=== PATIENT | female | born 2000 | race Caucasian/White ===

== ENCOUNTER 2021-07-17 16:49 | Outpatient (REF) | payer BC, SELFPAY ==
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
== END 2021-07-17 16:50 | disposition home or self-care (01) ==
LOC: HO.XRAY 16:49
PROVIDERS: Absent Provider Internal Medicine; PCP Internal Medicine; Visit Provider Family Medicine
DX: S96.912D Strain of unspecified muscle and tendon at ankle and foot level, left foot, subsequent encounter (principal)
CPT/HCPCS: 73630

== ENCOUNTER 2024-08-10 17:36 | Outpatient (REF) | payer BC, SELFPAY | END 2024-08-10 17:37 | disposition home or self-care (01) | LOC: HO.HHCLNP 17:36 | PROVIDERS: Visit Provider Nurse Practitioner | DX: R09.81 Nasal congestion (principal) | CPT/HCPCS: 87070 ==

== ENCOUNTER 2024-09-21 09:01 | Outpatient (AMB) | payer OTHER, SELFPAY ==
--- NOTE | 2024-09-21 09:03 | A.OFFVIS_ITS ---
Vital Signs 09/21/24 09:10 Height 5 ft 5 in Weight 164 lb BMI 27.3 BP 135/60 Blood Pressure Location Rt brachial Position Sitting Pulse 95 Intake Visit Reasons: soft tissue mass (R) wrist Intake Note: Patient referred by Alayna Duffy NP for mass on dorsal surface of rt wrist. Present for 5m. Patient c/o: bothersome with movement. 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 It is increasing in size, become more symptomatic. She would like to have it removed. She has no such lesions elsewhere. Chart was reviewed and patient evaluate [facility] Medical History (Updated 09/21/24 @ 09:08 by MARGARET Julian) ADHD Surgical History (Updated 09/21/24 @ 09:25 by Micah Williamson MD) [place] teeth extracted Social History (Updated 09/21/24 @ 09:09 by MARGARET Julian) Alcohol intake: current Alcohol intake frequency: holidays/special occasions only Alcohol type: wine and hard liquor Patient Tobacco Use Status: Never used Tobacco Physical Exam Vital Signs: Last Vital Signs Pulse 95 09/21/24 09:10 BP 135/60 09/21/24 09:10 BMI result Body Mass Index 27.3 Chest Other: Chest breath sounds bilaterally, HS 1 in 2 GI Other: Abdomen is soft, benign Extrem Other: Large dorsum right wrist ganglion cyst measuring roughly 3 x 2 cm. Extremities otherwise grossly neurovascularly intact Assessment & Plan Assessment & Plan (1) Ganglion cyst of dorsum of right wrist: Code(s): M67.431 - Ganglion, right wrist Category: Surgical Plan Risks, benefits, alternatives of excision of dorsum right wrist ganglion cyst were reviewed with the patient and included but not limited to bleeding, infection, recurrence, numbness, pain, scarring and the patient wished to proceed. All questions answered. Arrangements were made for this Coding Level of Care Code New Pt Level 5 (30673) Diagnoses Ganglion cyst of dorsum of right wrist M67.431
[2024-09-21 09:10] VITALS: BP 135/60; PULSE 95; BMI 27.3
== END 2024-09-21 09:20 | disposition home or self-care (01) ==
PROVIDERS: PCP Internal Medicine; Visit Provider Surgery
DX: M67.431 Ganglion, right wrist (principal)
CPT/HCPCS: 99204

== ENCOUNTER → 2024-09-21 09:01 | Outpatient (BNVA) | payer BC, SELFPAY | PROVIDERS: PCP Internal Medicine; Visit Provider Surgery ==

== ENCOUNTER 2024-11-13 11:15 | Day surgery (SDC) | payer OTHER, SELFPAY ==
[2024-11-11 13:36] VITALS: BMI 27.3
--- NOTE | 2024-11-12 09:27 | HO.ANESPROP2 ---
Documented by User: Jemima Dawkins NP 11/12/24 09:27 HPI - Anesthesia Eval Consult details Narrative: 24yo F for Right Wide Local Excision Dorsum Wrist Ganglion Cyst PMFSH Active Problems Active Problems: All Active Problems Ganglion cyst of dorsum of right wrist (Acute) Past Medical History Medical History ADHD Surgical History Surgical History [place] teeth extracted Social History Social History Alcohol intake: current Alcohol intake frequency: holidays/special occasions only Alcohol type: wine and hard liquor Patient Tobacco Use Status: Never used Tobacco Advance Directives: No Advance Directives Information Provided: Yes Meds Allergies Allergy/AdvReac Type Severity Reaction Status Date / Time No Known Allergies Allergy Verified 09/21/24 09:07 Home Medications ?Medication ?Instructions ?Recorded ?Confirmed ?Last Taken ?Type dextroamphetamine-amphetamine 30 1 tab PO QAM 09/21/24 11/11/24 Unknown History mg tablet Exam Height,Weight and Vital Signs: Height 5 ft 5 in Weight 74.389 kg Assessment and Plan Assessment Anesthesia Assessment: Chart Reviewed Documented by User: Xiomy Awad MD 11/13/24 11:49 PMFSH Past Medical History Medical History ADHD Surgical History Surgical History [place] teeth extracted History of Problems with Anesthesia: No Social History Social History Alcohol intake: current Alcohol intake frequency: holidays/special occasions only Alcohol type: wine and hard liquor Patient Tobacco Use Status: Never used Tobacco Advance Directives: No Advance Directives Information Provided: Yes Meds Allergies Allergy/AdvReac Type Severity Reaction Status Date / Time No Known Allergies Allergy Verified 09/21/24 09:07 Home Medications ?Medication ?Instructions ?Recorded ?Confirmed ?Last Taken ?Type dextroamphetamine-amphetamine 30 1 tab PO QAM 09/21/24 11/11/24 Unknown History mg tablet Exam Airway Mallampati Class: I TM Dist: >3cm Neck ROM: Full Loose/Missing/Broken Teeth: No Heart: RRR Lungs: CTA Assessment and Plan Assessment Anesthesia Assessment: Anesthesia Plan Discussed Final Anesthetic Review History of Problems with Anesthesia: No NPO: Yes ASA Class: II Final Preanesthetic Review: Meds/Allgs Chart Reviewed, Consent Obtained/Reviewed and Anes Risks/Benef Reviewed Patient Risk: Low Procedure Risk: Low Anesthetic Plan Anesthetic Plan: GA Disposition: Standard PACU
--- NOTE | 2024-11-12 13:40 | MHC.SHP ---
Pre-Procedural Eval Section A - 24 Hr Update-Section A only Date of Service: 11/13/24 The patient is an INPATIENT: No Changes since office visit: No Cold of Flu in the past 2 weeks, No New Medical Problems, No Changes in Medication and No Patient answered all questions Section B - Complete if H&P > 30 days Chief Complaint: Ganglion, right wrist Allergies: Allergies Allergy/AdvReac Type Severity Reaction Status Date / Time No Known Allergies Allergy Verified 09/21/24 09:07 Review of Systems Sugical H&P ROS: Negative: Constitution, Cardiovascular, Respiratory, Neurological, Psychiatric, Hem-Onc, Allergic/Immunologic, Gastrointestinal, Genitourinary, Musculoskeletal, Integumentary, Endocrine and Eyes/Ears/Nose/Throat Exam Surgical H&P Exam: Normal: HEENT, Normal: Heart, Normal: Lungs, Normal: Extremities, Normal: Abdomen, Normal: Skin and Normal: Neurological Plan I have reviewed the history and physical and performed a pertinent physical examination on my patient. No changes have occurred unless specified. Time Spent With Patient Time: Total time managing care of this patient today ____ minutes.
[2024-11-13 11:56] VITALS: BP 111/72; PULSE 80; RESP 14; TEMP 36.7; O2SAT 100; BMI 26.6
[2024-11-13] MEDS: Lactated Ringers 1,000 ML 100 ML IVCONT (12:00)
[2024-11-13 12:05] LABS: UPreg QC Valid YES; Urine Pregnancy NEGATIVE (NEGATIVE)
[2024-11-13 12:50] VITALS: BP 129/75; PULSE 75; RESP 18; TEMP 36.2; O2SAT 100
[2024-11-13 12:55] VITALS: BP 137/84; PULSE 97; RESP 18; O2SAT 100
--- NOTE | 2024-11-13 12:56 | W.PM.OPN ---
Operative Note Operative Note Date of Service: 11/13/24 Narrative: Preoperative diagnosis: [] Dorsum right wrist large symptomatic ganglion cyst Postop diagnosis: [] The same Procedure [] excision ganglion cyst dorsum right wrist Surgeon: [] Clay Swatch Paster: [] Type of Anesthesia: [] General Indication for surgery: [] Ganglion Cyst measuring roughly 3 x 2 cm of dorsal right wrist Findings: [] Patient brought to the operating room, placed on operative table supine position, after an adequate level general anesthesia was induced, the right upper extremity was prepped and draped in usual sterile fashion using a transverse incision dorsum of the wrist over the ganglion cyst in question, this carried down through skin, subcutaneous tissue, dissection down through the cyst which was circumferentially dissected down to the base in the carpal bones. Cyst was excised and base was cauterized using Bovie. Wound was irrigated, secured hemostasis, and closed in the following manner; subcutaneous tissues reapproximated using interrupted 3-0 Vicryl suture. Skin was closed using interrupted inverted dermal 3-0 Vicryl sutures followed by Steri-Strips sterile dressings. Wound was infiltrated 0.5% Marcaine/1% lidocaine at completion. Dressing followed by Kerlix wrap followed by wrist immobilizer were then placed. Sponge, needle, and instrument counts reported correct. Patient tolerated the procedure well and emerged from anesthesia stable condition. EBL minimal. Hand was grossly neurovascularly intact at completion.
[2024-11-13 13:00] VITALS: BP 121/70; PULSE 98; RESP 18; O2SAT 100
[2024-11-13 13:05] VITALS: BP 125/91; PULSE 94; RESP 20; O2SAT 100
[2024-11-13 13:20] VITALS: BP 119/78; PULSE 71; RESP 20; TEMP 36.9; O2SAT 100
== END 2024-11-13 14:36 | disposition home or self-care (01) ==
PROVIDERS: Nurse Practitioner; PCP Internal Medicine; Visit Provider Surgery
DX: M67.431 Ganglion, right wrist (principal); F90.9 Attention-deficit hyperactivity disorder, unspecified type; Z79.899 Other long term (current) drug therapy
CPT/HCPCS: 25111; 81025; 88304; J0690; J1100; J1885; J2003; J2250; J2405; J2704; J2795; J3010

== ENCOUNTER → 2024-11-13 11:15 | Outpatient (BNV) | payer OTHER, SELFPAY | PROVIDERS: PCP Internal Medicine; Visit Provider Surgery | DX: M67.431 Ganglion, right wrist (principal) | CPT/HCPCS: 25111 ==

== ENCOUNTER 2024-11-23 13:40 | Outpatient (AMB) | payer OTHER, SELFPAY ==
[2024-11-23 13:41] VITALS: BMI 27.1
--- NOTE | 2024-11-23 13:41 | A.OFFVIS_ITS ---
Vital Signs 11/23/24 13:41 Height 5 ft 5 in Weight 163 lb 2.273 oz BMI 27.1 Intake Visit Reasons: s/p WLE Dorsor RT wrist gangelon cyst Intake Note: Patient in office today s/p excision ganglion cyst dorsum right wrist. CC: Patient denies any pain or discharge. She reports some pain yesterday when she bent it to put a towel on her head. 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 Aside from incisional discomfort which is improving, she is doing well. She has been wearing her splint. She has returned to work. [facility] Medical History ADHD Surgical History Ganglion cyst of dorsum of right wrist (11/13/24) [place] teeth extracted Social History Are you a primary manager intensive care to a significant other at home: No Do you presently have visiting nurse or other home services: No Alcohol intake: current Alcohol intake frequency: holidays/special occasions only Alcohol type: wine and hard liquor Patient Tobacco Use Status: Never used Tobacco Physical Exam Vital Signs: BMI result Body Mass Index 27.1 Extrem Other: Wrist No significant edema. Grossly neurovascular within normal limits. Incision healing well Assessment & Plan Assessment & Plan (1) Postop check: Code(s): Z09 - Encounter for follow-up examination after completed treatment for conditions other than malignant neoplasm Category: Surgical Plan: Patient was been given local instructions including avoiding strenuous activities, wearing the splint and slowly wean herself off and otherwise follow- up p.r.n.. All questions answered. Coding Level of Care Code Global (87206) Diagnoses Postop check Z09
== END 2024-11-23 13:56 | disposition home or self-care (01) ==
PROVIDERS: PCP Internal Medicine; Visit Provider Surgery
DX: Z09 Encounter for follow-up examination after completed treatment for conditions other than malignant neoplasm (principal)
CPT/HCPCS: 99024

== ENCOUNTER → 2024-11-23 13:40 | Outpatient (BNVA) | payer OTHER, SELFPAY | PROVIDERS: PCP Internal Medicine; Visit Provider Surgery ==

== ENCOUNTER 2025-09-23 14:26 | Outpatient (REF) | payer OTHER, SELFPAY ==
--- OUTSIDE RECORDS SUMMARY | 2025-09-23 13:45 | XMS_ITS | Encounter Summary ---
Author Organization [employer] Address [address] [place] [address] [address] [place] [address] Care Team Providers Care Residential Living Assistant Name Role Phone Kelton Floerntino MD Primary Care Prov ider Encounter Details Date Type Department Care Team (Latest Contact Info) Description 09/23/2025 1:45 PM EST Office Visit [facility] [address] [place], [place] [phone] Kelton Florentino MD [address] [place] [address] Attention deficit hyperactivity disorder (ADHD), combined type (Primary Dx); Other fatigue; Mild intermittent asthma without complication; Dietary counseling; Exercise counseling; Encounter for immunization Social History Tobacco Use Types Packs/Day Years Used Date Smoking Tobacco: Never Smokeless Tobacco: Never Alcohol Use Standard Drinks/Week Comments Yes 0 (1 standard drink = 0.6 oz pur e alcohol) oca Housing Stability Answer Date Recorded What is your housing situation today? I have erick baker 09/16/[address] you li ve. Do you have problems with any of the following? None of the above 09/16/2025 Food Insecurity Answer Date Recorded Within the past 12 months, y ou worried that your food would run out before you got money to buy more: Never True 09/16/2025 Within the past 12 months,th e food you bought just didn't last and you didn't have enough money to get more: Never True Transportation Answer Date Recorded In the past 12 months, has l ack of transportation kept you from medical appts, meetings, work or from getting things needed for daily living? No 09/16/2025 Utilities Answer Date Recorded In the past 12 months, has t he electric, gas, oil or water company threatened to shut off services in your home? No 09/16/2025 Internet Access Answer Date Recorded Internet Access Q1 Yes 09/16/2025 Internet Access Q2 Not on file 09/16/2025 Comments No Sex and Gender Information Value Date Recorded Sex Assigned at Female 09/03/2022 10:36 AM EDT Legal Sex Female 10:36 AM EDT Gender Identity Choose not to disclose 10:36 AM EDT Sexual Orientation Bisexual 09/03/2022 10 :36 AM EDT documented as of this encounter Last Filed Vital Signs Vital Sign Reading Time Taken Comments Blood Pressure 128/77 09/23/2025 1:25 PM EST Pulse 82 09/23/2025 1:25 PM EST Temperature 36.8 C (98.3 F) 09/23/2025 1:25 PM EST Respiratory Rate 16 09/23/2025 1:25 PM EST Oxygen Saturation - - Inhaled Oxygen Concentration - - Weight 77.1 kg (170 lb) 09/23/2025 1:25 PM EST Height 165.1 cm (5' 5 ) 09/23/2025 1:25 PM EST Body Mass Index 28.29 09/23/2025 1:25 PM EST documented in this encounter Progress Notes * Kelton Kiran MD - 09/23/2025 1:45 PM EST Subjective Patient ID: Zahira Roland is a 25 y.o. adult who presents for No chief complaint on file.. HPI Patient was seen on office for a physical exam. Review of Systems Constitutional: Negative for chills, fatigue and fever. Respiratory: Negative for cough and shortness of breath. Cardiovascular: Negative for chest pain and palpitations. Objective Physical Exam Constitutional: Appearance: Normal appearance. HENT: Right Ear: Tympanic membrane, ear canal and external ear normal. There is no impacted cerumen. Left Ear: Tympanic membrane, ear canal and external ear normal. There is no impacted cerumen. Cardiovascular: Rate and Rhythm: Normal rate and regular rhythm. Heart sounds: No murmur heard. Pulmonary: Effort: Pulmonary effort is normal. No respiratory distress. Breath sounds: No stridor. No wheezing or rhonchi. Abdominal: General: Abdomen is flat. There is no distension. Palpations: There is no mass. Tenderness: There is no abdominal tenderness. Hernia: No hernia is present. Musculoskeletal: General: Normal range of motion. Cervical back: Normal range of motion. No rigidity or tenderness. Lymphadenopathy: Cervical: No cervical adenopathy. Neurological: General: No focal deficit present. Mental Status: Zahira is alert and oriented to person, place, and time. Psychiatric: Mood and Affect: Mood normal. Behavior: Behavior normal. Assessment/Plan Problem List Items Addressed This Visit Attention deficit hyperactivity disorder (ADHD), combined type - Primary On adderrall, no changes will be made, no side effects reported Relevant Orders CBC auto differential Comprehensive Metabolic Panel Lipid Panel, Standard TSH W/Reflex to FT4 HIV-1/2 Antigen and Antibodies, Fourth Generation, with Reflexes Hepatitis C Antibody with Reflex to HCV, RNA, Quantitative, Real-Time PCR Mild intermittent asthma without complication Other fatigue Will order routine blood work to rule out secondary causes, follow up as needed Relevant Orders Hemoglobin A1c Iron And Total Iron Binding Capacity Vitamin B12 (Cobalamin) and Folate Panel, Serum Other Visit Diagnoses Dietary counseling Exercise counseling documented in this encounter Miscellaneous Notes * Assessment & Plan Note - Kelton Kiran MD - 09/23/2025 1:54 PM ESTAssociated Problem(s): Attention deficit hyperactivity disorder (ADHD), combined type On adderrall, no changes will be made, no side effects reported * Assessment & Plan Note - Kelton Kiran MD - 09/23/2025 1:54 PM ESTAssociated Problem(s): Other fatigue Will order routine blood work to rule out secondary causes, follow up as needed documented in this encounter Plan of Treatment Scheduled Orders Name Type Priority Associated Diagnoses Orde r Schedule HIV-1/2 Antigen and Antibodies, Fourth Generation, with Reflexes Lab Routine Attention deficit hyperactivity disorder (ADHD), combined type Expected: 09/23/2025 (Approximate), Expires: 09/23/2026 Hepatitis C Antibody with Reflex to HCV, RNA, Quantitative, Real-Time PCR Lab Routine Attention deficit hyperactivity disorder (ADHD), combined type Expected: 09/23/2025, Expires: 09/23/2026 documented as of this encounter Procedures Procedure Name Priority Date/Time Associated Diagnosis Comments VITAMIN B12/FOLATE, SERUM PANEL Routine 09/23/2025 2:27 PM EST Other fatigue TSH W/REFLEX TO FT4 Routine 09/23/2025 2 :27 PM EST Attention deficit hyperactivity disorder (ADHD), combined type CBC WITH AUTO DIFFERENTIAL Routine 09/23/2025 2:27 PM EST Attention deficit hyperactivity disorder (ADHD), combined type IRON AND TOTAL IRON BINDING CAPACITY Routine 09/23/2025 2:27 PM EST Other fatigue HEMOGLOBIN A1C Routine 09/23/2025 2:27 PM EST Other fatigue LIPID PANEL, STANDARD Routine 09/23/2025 2:27 PM EST Attention deficit hyperactivity disorder (ADHD), combined type COMPREHENSIVE METABOLIC PANEL Routine 09/23/2025 2:27 PM EST Attention deficit hyperactivity disorder (ADHD), combined type documented in this encounter Results * Vitamin B12 (Cobalamin) and Folate Panel, Serum (09/23/2025 2:27 PM EST) Vitamin B12 765 200 - 900 pg/mL [facility] Comment:NORMAL 200-900 PG/ML INDETERMINATE 160-199 PG/ML DEFICIENT < 160 PG/ML Folate 11.9 > or = 4.0 ng/mL [facility] Comment:Reference Values:> o r = 4.0 ng/mL< 4.0 ng/mL suggests folate deficiency Methotrexate, aminopterin and folinic acid(leucovorin) are chemotherapeutic agents whose molecularstructures are similar to folate; therefore, the Architectfolate assay cannot be used for patients using these drugs. Blood Venous blood specimen / Unknown 09/23/2025 2:27 PM EST 09/23/2025 6:01 PM EST Kelton Kiran MD LAB BLOOD ORDERABL ES Final Result Performing Organization Address [facility] Co de Phone Number [facility] [address] [place] [phone] * Iron And Total Iron Binding Capacity (09/23/2025 2:27 PM EST) Iron 95 30 - 160 mcg/dL [facility] Total Iron Binding Capacity 302 228 - 428 mcg/dL [facility] Percent Iron Saturation 31 15 - 50 % [facility] Unsaturated Iron Binding 207 ug/dL [facility] Blood Venous blood specimen / Unknown 09/23/2025 2:27 PM EST 09/23/2025 6:01 PM EST Kelton Kiran MD LAB BLOOD ORDERABL ES Final Result Performing Organization Address [facility]/[employer] Number [facility] [address] [place] [phone] * Hemoglobin A1c (09/23/2025 2:27 PM EST) Hemoglobin A1c 5.1 <6.0 % [facility] Comment:Hemoglobin A1C Refer ence Range Adults: 4.8 - 6.0 % Non diabetic: < 6.0 % Goal: < 7.0 %Additional Action Suggested: > 8.0 %Note: Hemoglobin A1c results are invalid for patients with abnormal amounts of HbF. Blood transfusions may impact the HbA1c concentration in the patient sample. Estimated Average Glucose 100 mg/dL [facility] Comment:eAG = Estimated ave rage glucose which is %A1C expressed asaverage glucose, using the formula of the [id number] Glucose study (ADAG), Diabetes Care, Vol.31,#8,2007 Blood Venous blood specimen / Unknown 09/23/2025 2:27 PM EST 09/23/2025 6:01 PM EST us Kelton Kiran MD LAB BLOOD ORDERABL ES Final Result Performing Organization Address [facility] Co de Phone Number [facility] [address] [place] [phone] * TSH W/Reflex to FT4 (09/23/2025 2:27 PM EST) TSH reflex Free T4 1.48 0.32 - 4.0 uIU/mL [facility] Blood Venous blood specimen / Unknown 09/23/2025 2:27 PM EST 09/23/2025 6:01 PM EST Kelton Kiran MD LAB BLOOD ORDERABL ES Final Result Performing Organization Address [facility] Co de Phone Number [facility] [address] [place] [phone] * Lipid Panel, Standard (09/23/2025 2:27 PM EST) Triglycerides 79 <150 mg/dL [facility] Comment:Slight Lipemia.Carol able Triglyceride: less than 150 mg/dLBorderline High Triglyceride 150-199 mg/dLHigh Triglyceride: 200-499 mg/dLVery High Triglyceride: greater than or equal to 5OO mg/dL Cholesterol 179 <200 mg/dL [facility] Comment:Desirable Cholestero l: less than 200 mg/dLBorderline High Cholesterol: 200-239 mg/dLHigh Cholesterol: greater than 239 mg/dL LDL Cholesterol Calculated 95 <100 mg/dL [facility] Comment:Desirable LDL: less than 100 mg/dLNear Optimal/Above Optimal LDL: 110- 129 mg/dLBorderline High LDL: 130-159 mg/dLHigh LDL: 160-189 mg/dLVery High LDL: greater than or equal to 190 mg/dL HDL Cholesterol 69 >40 mg/dL [facility] Comment:Desirable HDL: great er than 40 mg/dL Note: This HDL assay may give artificially low results in patients with liver disease. Blood Venous blood specimen / Unknown 09/23/2025 2:27 PM EST 09/23/2025 6:01 PM EST us Kelton Kiran MD LAB BLOOD ORDERABL ES Final Result [facility] [address] [place] [phone] * (ABNORMAL) Comprehensive Metabolic Panel (09/23/2025 2:27 PM EST) Sodium 140 135 - 145 mmol/L [facility] Potassium 3.8 3.3 - 5.1 mmol/L [facility] Chloride 104 96 - 108 mmol/L [facility] Carbon Dioxide 28 22 - 29 mmol/L [facility] Anion Gap 12 12 - 20 [facility] Urea Nitrogen (BUN) 11 9 - 16 mg/dL [facility] Creatinine, Serum 0.62 0.5 - 1.4 mg/dL [facility] Estimated Glomerular Filt Rate >60 [facility] Comment:Chronic Kidney Disea se: Estimated GFR < 60 mL/min/1.48u3Lowifs Kidney Disease: Estimated GFR < 15 mL/min/1.73m2 Glucose 93 60 - 115 mg/dL [facility] Calcium 9.6 8.4 - 10.2 mg/dL [facility] Bilirubin, Total 0.3 0.0 - 1.0 mg/dL [facility] Aspartate Amino Transferase 32(H) 5 - 31 U/L [facility] Alanine Aminotransferase 26 0 - 31 U/L [facility] Total Protein 8.2(H) 6.5 - 8.0 g/dL [facility] Albumin Level 5.0 3.5 - 5.0 g/dL [facility] Alkaline Phosphatase 62 39 - 117 U/L [facility] Blood Venous blood specimen / Unknown 09/23/2025 2:27 PM EST 09/23/2025 6:01 PM EST us Kelton Kiran MD LAB BLOOD ORDERABL ES Final Result [facility] [address] [place] [phone] * CBC auto differential (09/23/2025 2:27 PM EST) White Blood Count 7.6 4.8 - 10.8 X10*3/uL [facility] Red Blood Count 4.47 4.20 - 5.50 X10*6/uL [facility] Hemoglobin 13.6 12.0 - 16.0 g/dl [facility] Hematocrit 41.6 37.0 - 47.0 % [facility] Mean Corpuscular Volume 93.1 80.0 - 98.0 fL [facility] Mean Corpuscular Hemoglobin 30.4 27.0 - 33.0 pg [facility] Mean Corpuscular HGB Conc 32.7 31.0 - 35.0 g/dl [facility] Red Cell Distribution Width 12.4 11.0 - 16.0 % [facility] Platelet Count 370 160 - 400 X10*3/uL [facility] Mean Platelet Volume 9.8 9.4 - 12.3 fL [facility] Neutrophils Percent Auto 62.7 45 - 73 % [facility] Imm Gran Pct Auto 0.3 0.0 - 0.4 % [facility] Lymphocytes Percent Auto 28.0 20 - 40 % [facility] Monocytes Percent Auto 7.2 2 - 11 % [facility] Eosinophils Percent Auto 0.9 0 - 4 % [facility] Basophils Percent Auto 0.9 0 - 2 % [facility] NRBC Pct Auto 0.0 0.0 - 0.2 /100WBC [facility] Neutrophils Absolute Auto 4.8 2.0 - 8.3 x10*3/uL [facility] Imm Gran Abs Auto 0.02 0.00 - 0.03 X10*3/uL [facility] Lymphocytes Absolute Auto 2.1 1.2 - 4.9 X10*3/uL [facility] Monocytes Absolute Auto 0.6 0.1 - 1.2 X10*3/uL [facility] Eosinophils Absolute Auto 0.1 0.0 - 0.4 X10*3/uL [facility] Basophils Absolute Auto 0.1 0.0 - 0.2 X10*3/uL [facility] NRBC Abs Auto 0.000 0.0 - 0.012 X10*3/uL [facility] Blood Venous blood specimen / Unknown 09/23/2025 2:27 PM EST 09/23/2025 6:01 PM EST us Kelton Kiran MD LAB BLOOD ORDERABL ES Final Result [facility] [address] [place] [phone] documented in this encounter Visit Diagnoses Diagnosis Attention deficit hyperactivity disorder (ADHD), combined type- Primary Other fatigue Mild intermittent asthma without complication Dietary counseling Dietary surveillance and counseling Exercise counseling Encounter for immunization documented in this encounter Care Teams Residential Living Assistant Relationship Specialty Start Date End Date Kelton Florentino MD [address] [place] [phone] PCP - General Internal Medicine 01/25/20 documented as of this encounter
[2025-09-23 18:06] LABS: MANUAL DIFF FLAG NO
[2025-09-23 18:13] LABS: Hematocrit 41.6 % (37.0-47.0); Hemoglobin 13.6 g/dl (12.0-16.0); Imm Gran Abs Auto 0.02 X10*3/uL (0.00-0.03); Imm Gran Pct Auto 0.3 % (0.0-0.4); Lymphocytes Absolute Auto 2.1 X10*3/uL (1.2-4.9); Mean Corpuscular HGB Conc 32.7 g/dl (31.0-35.0); Mean Corpuscular Hemoglobin 30.4 pg (27.0-33.0); Mean Corpuscular Volume 93.1 fL (80.0-98.0); NRBC Abs Auto 0.000 X10*3/uL (0.0-0.012); NRBC Pct Auto 0.0 /100WBC (0.0-0.2); Platelet Count 370 X10*3/uL (160-400); Red Blood Count 4.47 X10*6/uL (4.20-5.50); White Blood Count 7.6 X10*3/uL (4.8-10.8)
[2025-09-23 18:54] LABS: Alanine Aminotransferase 26 U/L (0-31); Albumin Level 5.0 g/dL (3.5-5.0); Alkaline Phosphatase 62 U/L (39-117); Anion Gap 12 (12-20); Aspartate Amino Transferase 32 U/L (5-31); Blood Urea Nitrogen 11 mg/dL (9-16); Calcium 9.6 mg/dL (8.4-10.2); Carbon Dioxide 28 mmol/L (22-29); Chloride 104 mmol/L (96-108); Cholesterol 179 mg/dL (<200); Estimated Glomerular Filt Rate > 60; HDL Cholesterol 69 mg/dL (>40); Iron 95 mcg/dL (30-160); Percent Iron Saturation 31 % (15-50); Potassium 3.8 mmol/L (3.3-5.1); Sodium 140 mmol/L (135-145); Total Iron Binding Capacity 302 mcg/dL (228-428); Total Protein 8.2 g/dL (6.5-8.0); Triglycerides 79 mg/dL (<150); Unsaturated Iron Binding 207 ug/dL
[2025-09-23 19:00] LABS: Folate 11.9 ng/mL (> or = 4.0); Vitamin B12 765 pg/mL (200-900)
--- OUTSIDE RECORDS SUMMARY | 2025-09-23 19:48 | XMS_ITS | Clinical Summary ---
Author Organization [facility] Address [address] [place] [address] Phone Care Team Providers Care Fence Post Driver Name Role Phone Unavailable Primary Care Provider Unavailabl e Allergies Active Allergy Reactions Criticality Noted Date Comments Kiwi Extract Medications Spacer/Aero-Holdi ng Chambers (AEROCHAMBER PLUS DARIN-VU) miscIndications:M ild intermittent asthma without complication AEROCHAMBER PLUS FLOW-VU; inhale by Inhalation route use c MDI as directed.; 08/21/2015; Active 5 Active albuterol HFA (PROAIR HFA) 108 (90 BASE) MCG/ACT inhalerIndication s:Mild intermittent asthma without complication PROAIR HFA; inhale 2-6 puff by inhalation route every 4 - 6 hours as needed; 90 MCG; 02/26/2017; Active 7 Active medroxyPROGESTERo ne 150 MG/ML injectionIndicati ons:Encounter for control pills maintenance Inject 1 mL (150 mg total) into the muscle every 3 (three) months. 1 mL 3 9 Active levonorgestrel-et hinyl estradiol (JOLESSA) 0.15-0.03 MG per tabletIndications :Menstrual cycle disorder Take 1 tablet by mouth daily. 91 tablet 3 9 Active cetirizine (ZYRTEC ALLERGY) 10 MG tabletIndications :Acute allergic rhinitis Take 1 tablet (10 mg total) by mouth nightly as needed for allergies. 90 tablet 3 9 Active multivitamin tablet tabletIndications :Well adolescent visit without abnormal findings Take 1 tablet by mouth daily. 90 tablet 3 0 Active amphetamine-dextr oamphetamine XR (Adderall XR) 25 MG 24 hr capsuleIndication s:Attention deficit hyperactivity disorder, predominantly inattentive type Take 1 capsule (25 mg total) by mouth every morning for 21 days. 21 capsule 0 Active Active Problems Problem Noted Date Diagnosed Date Raynaud's phenomenon 02/05/2014 Lactose intolerance 11/18/2013 Menstrual cycle disorder 05/29/2013 Overview (09/13/2019): Seeing [facility] 2019 Assessment & Plan (12/03/2018 10:41 AM EST): She stopped OCP and feels she is less day; I advised she see [facility] for LARC such as Mirena Assessment & Plan (07/05/2017 9:33 AM EDT): Doing well on ashlyna- 3mo. OCP STD screen done @ [facility] in 2017 Has refills for the year Allergic rhinitis 03/20/2010 Overview (12/03/2018): Zyrtec prn Assessment & Plan (07/05/2017 9:32 AM EDT): Switch claritin to zyrtec for the fall season Keep using OTC eye allergy drops twice a day Asthma, mild intermittent 03/20/2010 Overview (12/03/2018): proair prn Assessment & Plan (07/05/2017 9:31 AM EDT): [facility] uses proair Getting flu vax @ work- send us a note with the vaccine date given Attention deficit hyperactiv ity disorder, predominantly inattentive type 03/20/2010 Overview (12/03/2018): On adderall XR 25mg; annual med check now that she is in college Assessment & Plan (12/03/2018 10:42 AM EST): I will see her once a year now as she is doing well and in college; will have one more PE with me Assessment & Plan (07/05/2017 9:31 AM EDT): Just got RF Adderall XR Recheck in 6mo. In DEC 2017 In college @ [employer] [employer] and stable on med Immunizations Immunization Administration Dates Next Due DTaP 5 03/08/2003, 0,07/11/1999,01/20,1998 H1N1 09/28/2009 HPV, Quadrivalent 09/06/2010,02/01/2010,11/07/19 10 Hep A, ped/adol 12/16/2015,10/18/2014 Hep B, ped/adol 03/26/2016, 9,1998,03/28 Hib (PRP-T) 01/11/2000, 9,01/20/1999,06/18 IPV 03/08/2003, 9,01/20/1999,06/18 Influenza Split 08/18/2012,09/06/2010 Influenza, injectable, quadr ivalent, preservative free 08/31/2016,09/19/2015,07/23/2014,08/24 Influenza, injectable, trivalent 09/28/2009 MMR 03/08/2003,07/11/1999 Meningococcal Conj (Menactra) MCV4P 12/16/2015,0 11/07/2009 Tdap 09/28/2009 Varicella 11/07/2009,05/28/2000 Family History Medical History Relation Name Comments Food allergies Father Diabetes Paternal Grandmother Relation Name Status Comments Father Alive Father: Alive a nd well Maternal Grandmother Materna l grandmother: Hypertension Mother Alive Mother: Alive a nd well Other Family history of Hyperlipidemia, Family history of Diabetes mellitus, Family history of ADD/ADHD, No family history of Thrombophilia, Family history of Asthma, Family history of Obesity Paternal Grandfather Paternal Grandmother Social History Tobacco Use Types Packs/Day Years Used Date Smoking Tobacco: Never Smokeless Tobacco: Never Comments:Never smoker Alcohol Use Standard Drinks/Week Comments No 0 (1 standard drink = 0.6 oz pur e alcohol) Hunger/Food Answer Date Recorded No 12/03/2018 Stable Housing Answer Date Recorded No 11/05/2019 Transportation Concerns Answer Date Rec orded No 12/03/2018 Hazards in Home Answer Date Recorded No 12/03/2018 Financing Utilities Answer Date Recorde d No 12/03/2018 Safety at Home Answer Date Recorded No 12/03/2018 Outside Support Answer Date Recorded No 12/03/2018 Understanding Health Concerns Answer Da te Recorded No 12/03/2018 Financing Health Concerns Answer Date R ecorded No 12/03/2018 Missing School or Work Answer Date Luis Enrique rded No 12/03/2018 Comments Unknown Sex and Gender Information Value Date Recorded Sex Assigned at Not on file Legal Sex Female 11:46 AM EDT Gender Identity Not on file Sexual Orientation Not on file Last Filed Vital Signs Vital Sign Reading Time Taken Comments Blood Pressure 119/69 12/23/2018 4:53 PM EST Pulse 140 12/23/2018 4:53 PM EST Temperature 37.4 C (99.3 F) 12/23/2018 4:53 PM EST Respiratory Rate - - Oxygen Saturation 100% 08/21/2015 12:00 AM EDT Inhaled Oxygen Concentration - - Weight 61.3 kg (135 lb 3.2 oz) 12/23/2018 4:53 P M EST Height 166.4 cm (5' 5.5 ) 12/03/2018 10:17 AM ES T Body Mass Index 22.16 12/03/2018 10:17 AM EST Plan of Treatment Health Maintenance Due Date Last Done Comments DTaP,Tdap,and Td Vaccines (7 - Td or Tdap) 09/28/2019 09/28/2009, 03/08/2003, 01/11/2000, Additional history exists Influenza Vaccines (#1) 2025 08/31/20 16, 09/19/2015, 07/23/2014, Additional history exists COVID-19 Vaccine ( season) 2025 HIB Vaccines Completed 01/11/2000, 07/2000, 07/11/1999, Additional history exists IPV Vaccines Completed 03/08/2003, 07/2000, 07/11/1999, Additional history exists MMR Vaccines Completed 03/08/2003, 07/11/1999 Varicella Vaccines Completed 11/07/2009, 05/28/2000 HPV Vaccines Completed 09/06/2010, 01/04, 11/07/2009 Hepatitis A Vaccines Completed 12/16/2015, 10/18/20 14 Meningococcal Vaccine Completed 12/16/2015, 010 Hepatitis B Vaccines Completed 03/26/2016, 01/20/1999, 1998, Additional history exists Men B Vaccine Aged Out No longer elig ible based on patient's age to complete this topic Pneumococcal Vaccine Aged Out No long er eligible based on patient's age to complete this topic Procedures * Due to [place] Epom law, this organization might not be sharing sensitive test results. Procedure Name Priority Date/Time Associated Diagnosis Comments CHLAMYDIA AND GONORRHEA, AMPLIFIED Routine 12/03/2018 12:00 AM EST Special screening for bacterial and spirochetal disease from Last 3 Months or Most Recently Relevant to Health Maintenance Results * Due to [place] Ep[place] law, this organization might not be sharing sensitive test results. * Chlamydia and Gonorrhoea, Amplified (12/03/2018 12:00 AM EST) Chlamydia Trachomatis, DNA Probe NEGATIVE (NEG) [facility] Comment: No Chlamydia Trachomatis RNA detected in this patient's sample (REFERENCE RANGE/NORMAL VALUE: NOT DETECTED) Note: This test uses plant wrapper- mediated amplification method to detect rRNA from C. Trachomatis URINE GC AMP PROBE NEGATIVE (NEG) [facility] Comment: No Neisseria Gonorrhoeae RNA detected in this patient's sample (REFERENCE RANGE/NORMAL VALUE: NOT DETECTED) NOTE: This test uses plant wrapper-mediated amplification method to detect rRNA from N.Gonorrhoeae. A negative result does not preclude infection. In the case of a negative urine result, testing of an endocervical(female) or urethral (male) specimen is recommended if there is high clinical suspicion of infection. Due to very high sensitivity of Nucleic Acid Amplification Test, false positive results may occur. Therefore, specimen handling is extremely important. In patients in whom the disease is unlikely, additional sample for testing should be considered after an initial positive result. The performance characteristics of this test have not been evaluated in children. The Aptima Combo2 assay is not intended for the evaluation of suspected sexual abuse or for other medico-legal indications. The ordering provider should assess if the patient had consensual sex without risk of sexual abuse. Consult the [facility] if needed. Contact phone number . Therapeutic failure or success cannot be determined with the Aptima Combo2 assay since nucleic acid may persist following appropriate antimicrobial therapy. The Centers for Disease Control and Prevention (CDC) recommends confirmatory retesting using culture or a different nucleic acid amplification test when positive results occur, if indicated. Testing performed or reported by [facility], a Service of [facility], [address], [place] [address] Urine 12/03/2018 12/04/2018 12: 02 AM EST us Rosalind Hankins DO LAB MICROBIOLOGY - GENERAL ORDER MARIA DEL CARMEN Final Result [facility] from Last 3 Months or Most Recently Relevant to Health Maintenance
--- OUTSIDE RECORDS SUMMARY | 2025-09-23 19:48 | XMS_ITS | Encounter Summary ---
Author Organization [employer] Address [address] [place] [address] Care Team Providers Care Healthcare Administration Internship Name Role Phone Kelton Florentino MD Primary Care Prov ider Reason for Visit * Reason Onset Date Comments Med Refill 11/06/2023 Encounter Details Date Type Department Care Team ([facility] st Contact Info) Description 11/06/2023 Refill [facility] CH[facility] MED & PEDS [address] [place] [address] Kelton Florentino MD [address] [place] [address] Attention deficit hyperactivity disorder (ADHD), combined type Social History Tobacco Use Types Packs/Day Years Used Date Smoking Tobacco: Never Smokeless Tobacco: Never Alcohol Use Standard Drinks/Week Comments Yes 0 (1 standard drink = 0.6 oz pur e alcohol) oca Comments Unknown Sex and Gender Information Value Date Recorded Sex Assigned at Female 09/03/2022 10:36 AM EDT Legal Sex Female 10:36 AM EDT Gender Identity Choose not to disclose 10:36 AM EDT Sexual Orientation Bisexual 09/03/2022 10 :36 AM EDT documented as of this encounter Plan of Treatment Not on file documented as of this encounter Visit Diagnoses Diagnosis Attention deficit hyperactivity disorder (ADHD), combined type documented in this encounter Care Teams Healthcare Administration Internship Relationship Specialty Start Date End Date Kelton Florentino MD [address] [place] [address] PCP - General Internal Medicine 01/25/20 documented as of this encounter
--- OUTSIDE RECORDS SUMMARY | 2025-09-23 19:48 | XMS_ITS | Encounter Summary ---
Author Organization [facility] Address [address] [place] [address] Phone Care Team Providers Care Noc Technician Name Role Phone Unavailable Primary Care Provider Unavailabl e Encounter Details Date Type Department Care Team (Late st Contact Info) Description 09/08/2010 Documentation [facility] Family Medicine [address] [place], [place] [id number] Family Medicine, Physician [address] [place] [address] Social History Tobacco Use Types Packs/Day Years Used Date Smoking Tobacco: Never Assessed Comments Unknown Sex and Gender Information Value Date Recorded Sex Assigned at Not on file Legal Sex Female 11:46 AM EDT Gender Identity Not on file Sexual Orientation Not on file documented as of this encounter Plan of Treatment Not on file documented as of this encounter Visit Diagnoses Not on filedocumented in this encounter
--- OUTSIDE RECORDS SUMMARY | 2025-09-23 19:48 | XMS_ITS | Clinical Summary ---
Author Organization [facility] Address [address] [place] [address] Phone Care Team Providers Care Reversing Mill Roller Name Role Phone Neri Cruz MD Unavailable Kelton Florentino MD Primary Care Prov ider Allergies Active Allergy Reactions Criticality Noted Date Comments Banana 09/10/2022 Kiwi (Actinidia Chinensis) 9 Latex 09/10/2022 Medications albuterol 90 mcg/actuation inhaler PROAIR HFA; inhale 2-6 puff by inhalation route every 4 - 6 hours as needed; 90 MCG; 02/26/2017; Active 7 Active inhaler spacing device (AEROCHAMBER,BR EATHERITE) Spcr AEROCHAMBER PLUS FLOW-VU; inhale by Inhalation route use c MDI as directed.; 08/21/2015; Active 5 Active multivitamin per tablet Take 1 tablet by mouth. 7 Active dextroamphetami ne-amphetamine (ADDERALL XR) 30 MG 24 hr capsule TAKE 1 CAPSULE BY MOUTH EVERY DAY IN THE MORNING UPON AWAKENING 2 Active MAGNESIUM ORAL Take by mouth. Active Medication-Free Text ASHWAGANDA Active Immunizations Immunization Administration Dates Next Due COVID-19 (Pre-08/26) Pfizer Vaccine, mRNA, PF 02/03/2021 Dtap, 5 Pertussis Antigens 03/08/2003,,07/11/1999,01/20,1998 [id number] FORMULATION 09/28/2009 HPV,quadrivalent 09/06/2010,02/01/2010, 0 Hepatitis A, ped/adol, 2 dose 12/16/2015, 014 Hepatitis B 03/26/2016, 9,1998,03/28 Hib,PRP-T 01/11/2000, 9,01/20/1999,06/18 INFLUENZA, SPLIT VIRUS, TRIV ALENT W/ PRESERVATIVE IM 09/28/2009 IPV 03/08/2003, 9,01/20/1999,06/18 Influenza Quadrivalent Prese rvative Free IM 08/31/2016,09/19/2015,07/23/2014,08/24 Influenza Split (Incl. Purif ied Surface Antigen) 08/18/2012,09/06/2010 MMR 03/08/2003,07/11/1999 Meningococcal MCV4P 12/16/2015,11/07/2009 Tdap 09/28/2009 Varicella 11/07/2009,05/28/2000 Family History Medical History Relation Comments Cervical cancer Cousin Diabetes Paternal Grandmother Relation Status Comments Cousin Father Alive Mother Paternal Grandmother Social History Tobacco Use Types Packs/Day Years Used Date Smoking Tobacco: Never Smokeless Tobacco: Never Tobacco Cessation:Counseling Given: Not Answered Alcohol Use Standard Drinks/Week Comments Yes 0 (1 standard drink = 0.6 oz pur e alcohol) occasionally Education Answer Date Recorded Are you interested in more education? Not on juan carlos e 03/01/2023 Are you concerned about learning? Not on file 03/01/2023 No 03/01/2023 No 03/01/2023 Digital Access Answer Date Recorded No 03/30/2023 No 03/30/2023 Reliable internet access at home? Not on file 03/30/2023 Device with a working camera? 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 Not on file Not on file Not on f ile Last Filed Vital Signs Vital Sign Reading Time Taken Comments Blood Pressure 110/70 07/20/2024 8:07 AM EDT Pulse - - Temperature - - Respiratory Rate - - Oxygen Saturation - - Inhaled Oxygen Concentration - - Weight 73.9 kg (163 lb) 07/20/2024 8:07 AM EDT Height 166.4 cm (5' 5.5 ) 07/20/2024 8:07 AM EDT Body Mass Index 26.71 07/20/2024 8:07 AM EDT Plan of Treatment Health Maintenance Due Date Last Done Comments DEPRESSION SCREENING 2010 HEPATITIS C SCREENING 2016 HIV ONE-TIME SCREENING (18-65 YEARS) 2016 Adult Td,Tdap Booster 09/28/2019 09/28/2009 INFLUENZA VACCINE (#1) 2025 , 08/31/2016, 09/19/2015, Additional history exists COVID-19 VACCINE ( season) 2025 06/04/2022, 06/19/2021, 02/03/2021 PAP SMEAR 07/20/2027 07/20/2024, 09/10/2022 HIB VACCINES Completed 01/11/2000, 05/1999, 01/20/1999, Additional history exists HEPATITIS A VACCINES Completed 12/16/2015, 10/18/20 14 MENINGOCOCCAL VACCINES (ACWY) Completed 12/16/2015, 11/07/2009 SMOKING STATUS SCREENING (Once After 26 Yrs) Completed 07/20/2024 MENINGOCOCCAL VACCINES (B) Aged Out N o longer eligible based on patient's age to complete this topic PNEUMOCOCCAL VACCINES (0-49 years) Aged Out No longer eligible based on patient's age to complete this topic Medical Devices Not on file Procedures Procedure Name Priority Date/Time Associated Diagnosis Comments PAP TEST Routine 07/20/2024 12:00 AM EDT from Last 3 Months or Most Recently Relevant to Health Maintenance Results * Pap Test (07/20/2024 12:00 AM EDT) Report [address] [address] Electronic Masking System Operator: Carissa Barron MD SOCIAL SCIENCES DEPARTMENT CHAIR Cytology Report FINAL DIAGNOSIS A. PAP SMEAR (THIN PREP) CE: SPECIMEN ADEQUACY: Satisfactory for evaluation; transformation zone present. INTERPRETATION: NEGATIVE FOR INTRAEPITHELIAL LESION OR MALIGNANCY. This specimen was analyzed by the automated ThinPrep Imaging System ([employer] and the selected dove were reviewed by a paving inspector. Electronically Signed Out By: ZULMA Noriega(ASCP) The Pap test is a screening test primarily for squamous cancers and precursors and has associated false-negative and false-positive results. New technologies such as liquid-based preparations may decrease but will not eliminate all false-negative results. Regular sampling and follow-up of unexplained clinical signs and symptoms are recommended to minimize false negative results. CLINICAL HISTORY Date of Last Menstrual Period: Not Provided Menstrual History: Unknown Other Clinical Conditions: SOCIAL SCIENCES DEPARTMENT CHAIR exam with abnormal findings Screening Pap Previous Unsatisfactory SPECIMEN SOURCE A: PAP SMEAR (THIN PREP) CE Patient Name: MANUEL ROLAND : 2000 (Age: 24) Sex: F Institution[facility] Location: [facility] Date of Collection: 07/20/2024 Date of Reported: 07/22/2024 08:37 Results to: Nisa INIGUEZ [facility] Final Diagnosis A. PAP SMEAR (THIN PREP) CE: SPECIMEN ADEQUACY: Satisfactory for evaluation; transformation zone present. INTERPRETATION: NEGATIVE FOR INTRAEPITHELIAL LESION OR MALIGNANCY. This specimen was analyzed by the automated ThinPrep Imaging System ([employer] and the selected odve were reviewed by a paving inspector. [facility] Conversion Type (Conversion Source) 07/20/2024 07/21/2024 10:22 AM EDT Nisa INIGUEZ CYTOLOGY ORDERABLES Edited Result - Final [facility] [address] [place] [address] from Last 3 Months or Most Recently Relevant to Health Maintenance Insurance O O O O O O Care Teams Reversing Mill Roller Relationship Specialty Start Date End Date Lomeli Kiran, Kelton, MD [address] [place] [address] PCP - General Internal Medicine 07/13/24 Neri Cruz MD [address] [facility] [address] [place] [address] Urology 06/29/24 Additional Source Comments The information contained in this document represents components of the legal health record. It is not the complete legal health record.[facility]
--- OUTSIDE RECORDS SUMMARY | 2025-09-23 19:48 | XMS_ITS | Encounter Summary ---
Author Organization [employer] Address [address] [facility] 7 [place] [address] Care Team Providers Care Tanker Serviceman Name Role Phone Kelton Florentino MD Primary Care Prov ider Reason for Visit * Reason Onset Date Comments Med Refill 05/06/2024 Encounter Details Date Type Department Care Team ([facility] st Contact Info) Description 05/06/2024 Telephone [facility] [address] [place] [address] Kelton Florentino MD [address] [place] [address] Med Refill Social History Tobacco Use Types Packs/Day Years [...] AM EDT documented as of this encounter Miscellaneous Notes * Telephone Encounter - Sacha Armstrong - 05/06/2024 8:44 AM EDT TC from pt requesting medication refill. Medications needing refill : amphetamine-dextroamphetamine (Adderall) 30 MG tablet To be sent to: [facility]/pharmacy #[id number] - [place] - [address] documented in this encounter Plan of Treatment Not on file documented as of this encounter Visit Diagnoses Not on filedocumented in this encounter Care Teams Tanker Serviceman Relationship Specialty Start Date End Date Kelton Florentino MD [address] [place] [address] PCP - General Internal Medicine 01/25/20 documented as of this encounter
--- OUTSIDE RECORDS SUMMARY | 2025-09-23 19:48 | XMS_ITS | Encounter Summary ---
Author Organization [employer] Address [address] [place] [address] Care Team Providers Care Director Of Catering Name Role Phone Kelton Florentino MD Primary Care Prov ider Reason for Visit * Reason Onset Date Comments Med Refill 01/08/2024 Encounter Details Date Type Department Care Team ([facility] st Contact Info) Description 01/08/2024 Refill [facility] CH[facility] MED & PEDS [address] [place] [address] Kelton Florentino MD [address] [place] [address] Attention deficit hyperactivity disorder (ADHD), combined type [...] type documented in this encounter Care Teams Director Of Catering Relationship Specialty Start Date End Date Kelton Florentino MD [address] [place] [address] PCP - General Internal Medicine 01/25/20 documented as of this encounter
--- OUTSIDE RECORDS SUMMARY | 2025-09-23 19:48 | XMS_ITS | Encounter Summary ---
Author Organization [employer] Address [address] [place] [address] 7 [place] [address] Care Team Providers Care Dough Molder Name Role Phone Kelton Florentino MD Primary Care Prov ider Encounter Details Date Type Department Care Team ([facility] st Contact Info) Description 12/12/2023 Orders Only [facility] CHC MED & PEDS [address] [place], [place] [phone] Kelton Florentino MD [address] [place], [place] [phone] Social History Tobacco Use Types Packs/Day Years [...] on filedocumented in this encounter Care Teams Dough Molder Relationship Specialty Start Date End Date Kelton Florentino MD [address] [place] [address] PCP - General Internal Medicine 01/25/20 documented as of this encounter
--- OUTSIDE RECORDS SUMMARY | 2025-09-23 19:48 | XMS_ITS | Encounter Summary ---
Author Organization [employer] Address [address] [place] [address] [address] [place] [address] Care Team Providers Care Upkeep Mechanic Name Role Phone Kelton Florentino MD Primary Care Prov ider Encounter Details Date Type Department Care Team ([facility] st Contact Info) Description 11/27/2023 Orders Only [facility] CHC MED & PEDS [address] [place], [place] [phone] Kelton Florentino MD [address] [place], [place] [phone] Social History Tobacco Use Types Packs/Day Years [...] on filedocumented in this encounter Care Teams Upkeep Mechanic Relationship Specialty Start Date End Date Kelton Florentino MD [address] [place] [address] PCP - General Internal Medicine 01/25/20 documented as of this encounter
--- OUTSIDE RECORDS SUMMARY | 2025-09-23 19:48 | XMS_ITS | Encounter Summary ---
Author Organization [employer] Address [address] [place] [address] [address] [place] [address] Care Team Providers Care Airplane Flight Attendant Supervisor Name Role Phone Kelton Florentino MD Primary Care Prov ider Reason for Visit * Reason Onset Date Comments requesting a call 05/06/2023 Encounter Details Date Type Department Care Team ([facility] Contact Info) Description 05/06/2023 Telephone [facility] CHC MED & PEDS [address] [place] [address] Kelton Florentino MD [address] [place] [address] requesting a call Social History Tobacco Use Types Packs/Day Years [...] encounter Miscellaneous Notes * Telephone Encounter - Hannah Cordero - 05/06/2023 11:23 AM EDT Tc from pt requesting a call in regards to urology referral. Please contact pt at [phone] documented in this encounter Plan of Treatment Not on file documented as of this encounter Visit Diagnoses Not on filedocumented in this encounter Care Teams Airplane Flight Attendant Supervisor Relationship Specialty Start Date End Date Kelton Florentino MD [address] [place] [address] PCP - General Internal Medicine 01/25/20 documented as of this encounter
--- OUTSIDE RECORDS SUMMARY | 2025-09-23 19:48 | XMS_ITS | Encounter Summary ---
Author Organization [facility] Address [address] [place] [address] Phone Care Team Providers Care Cotton Feeder Name Role Phone Unavailable Primary Care Provider Unavailabl e Encounter Details Date Type Department Care Team (Late st Contact Info) Description 09/08/2010 Documentation [facility] [place] [facility] [address] [place], [place] [id number] Family Medicine, Physician [address] [place] [address] Social History Tobacco Use Types Packs/Day Years [...]
--- OUTSIDE RECORDS SUMMARY | 2025-09-23 19:48 | XMS_ITS | Encounter Summary ---
Author Organization [employer] Address [address] [place] [address] Care Team Providers Care Electromechanical Technician Name Role Phone Kelton Florentino MD Primary Care Prov ider Reason for Visit * Reason Onset Date Comments Med Refill 03/02/2024 Encounter Details Date Type Department Care Team ([facility] Contact Info) Description 03/02/[address] [facility] [address] [place] [address] Kelton Florentino MD [address] [place] [address] Attention deficit hyperactivity disorder (ADHD), combined type [...] type documented in this encounter Care Teams Electromechanical Technician Relationship Specialty Start Date End Date Kelton Florentino MD [address] [place] [address] PCP - General Internal Medicine 01/25/20 documented as of this encounter
--- OUTSIDE RECORDS SUMMARY | 2025-09-23 19:48 | XMS_ITS | Data Portability ---
Author Organization [facility]INTAN Cerrato [facility] Address [address] [place] [address] Assessment No assessment recorded. Plan of Treatment Reminders Order Date Submit Date Provider Last Modified By Organization Details Last Modified Time Details Appointments None recorded. Lab rapid strep group A, throat 2022 023 [email or web address] _yuliana [facility], [address] [place] [address], [address], 3 10:05:38 rapid flu (A+B) 2021 022 [email or web address] 1 _yuliana [facility], [address] [place] [address], [address], 2 11:02:16 rapid SARS CoV 2 Ag, QL IA, respiratory specimen 2021 022 [email or web address] 1 yuliana [facility], [address] [place] [address], [address], 2 11:02:16 urinalysis, dipstick 2021 022 [email or web address] 1 _yuliana [facility], [address] [place] [address], [address], 2 11:02:16 test, urine 2021 022 [email or web address] 1 _yuliana [facility], [address] [place] [address] [place], [address], 2 11:02:16 culture, urine 2021 022 [facility], [address] [place] [address], [place], [address], 06:07:13 Referral None recorded. Procedures None recorded. Surgeries None recorded. Imaging None recorded. Medication Orders amoxicillin 875 mg tablet 2022 023 trinity [id number], [address] [facility] [place], [address], 3 10:28:41 fluconazole 150 mg tablet 2022 023 [id number] [address] [place], [address], 3 10:29:45 Bactrim DS 800 mg-160 mg tablet 2021 023 [id number] [address] [facility] [place], [address], 3 09:39:53 fluconazole 150 mg tablet 2021 023 [id number] [address] [place], [address], 3 09:39:54 Patient TargetsNo targets recorded. Patient Instructions Encounter Date Encounter Id Patient Instructions Last Modified By Organization Details Last Modified Time 10/17/2022 [id number] nausea and vomiting: care instructions [email or web address] Not available 10/17/2022 11:02:16 01/20/2023 [id number] sore throat: car e instructions [email or web address] Not available 01/20/2023 10:05:38 Discussed potential complications and intervention options with the patient during this visit. Patient was instructed to increase room humidity and eat soft bland foods. Raising the head of the bed, lozenges, and saline nasal spray were also recommended. Patient may take ibuprofen or acetaminophen as needed for pain control. If the issue does not improve in 24-48 hours, patient should return to the clinic for follow-up. You have been prescribed an antibiotic for your bacterial illness. While antibiotics are sometimes necessary, they can have a negative impact upon the healthy bacteria within your body. This can result in diarrhea/loose stools and yeast infections. By taking probiotics during the course of your prescription, you can lessen the probability of these undesirable side effects. Probiotics can be purchased gzzl-ffh-jevaega at your pharmacy in the form of capsules or gummies. They are also found naturally in yogurt with live cultures. Mix salt into a quarter-glass of warm water and stir until no more salt will dissolve. Gargle and spit out the salt water mixture one mouthful at a time until the glass is empty. Repeat 4 times daily. Hand hygiene is a osman measure for preventing spread to others, especially after coughing or sneezing and before preparing foods or eating, and we remind all patients of its importance. Please discard of your current tooth brush and get a new one after being on the antibiotic for 3-4 days to prevent reinfection. You are considered contagious until you have the antibiotic for 24 hours. We have sent out for lab results, typically take 3-5 days to return. [email or web address] Not available 01/20/2023 10:02:15 Reason for Referral None Reported. Results Created Date Observation Date Name Description Value Unit Range Abnormal Flag Note LastModifiedBy Organization Detail LastModifiedTime 10/17/20 22 10/17/2022 pregn chay test, urine Unknown Analyte Normal = Negati ve Not Available minerva blackman [address], [address], 10/17/2022 10:54:41 10/17/20 22 10/17/2022 pregn chay test, urine Unknown Analyte negati ve Not Available minerva blackman [address], [address], 10/17/2022 10:54:41 10/17/20 22 10/17/2022 urina lysis , dipst ick Unknown Analyte Normal = light yellow Not Available minerva blackman [address], [address], 10/17/2022 09:43:45 10/17/20 22 10/17/2022 urina lysis , dipst ick Unknown Analyte Red Not Available [address], [place], [address], 10/17/2022 09:43:45 10/17/20 22 10/17/2022 urina lysis , dipst ick Unknown Analyte Normal = clear Not Available minerva blackman em[address], [place], [address], 10/17/2022 09:43:45 10/17/2010/17/2022 urina lysis , dipst ick Unknown Analyte Clear Not Available yuliana [address], [place], [address], 10/17/2022 09:43:45 10/17/20 22 10/17/2022 urina lysis , dipst ick Unknown Analyte Normal = negati ve Not Available minerva blackman [address], [place], [address], 10/17/2022 09:43:45 10/17/20 22 10/17/2022 urina lysis , dipst ick Unknown Analyte 100 mg/dL Not Available minerva blackman [address], [place], [address], 10/17/2022 09:43:45 10/17/20 22 10/17/2022 urina lysis , dipst ick Unknown Analyte Normal = Negati ve Not Available minerva blackman [address], [place], [address], 10/17/2022 09:43:45 10/17/20 22 10/17/2022 urina lysis , dipst ick Unknown Analyte Negati ve Not Available minerva blackman [address], [place], [address], 10/17/2022 09:43:45 10/17/2010/17/2022 urina lysis , dipst ick Unknown Analyte Normal = Negati ve Not Available [address]99minerva blackman [address], [place], [address], 10/17/2022 09:43:45 10/17/20 22 10/17/2022 urina lysis , dipst ick Unknown Analyte Negati ve Not Available [address]minerva blackman [address], [place], [address], 10/17/2022 09:43:45 10/17/2010/17/2022 urina lysis , dipst ick Unknown Analyte Normal = 1.010, 1.015, 1.020 Not Available [address]minerva blackman [address], [place], [address], 10/17/2022 09:43:45 10/17/20 22 10/17/2022 urina lysis , dipst ick Unknown Analyte 1.010 Not Available [address], [place], [address], 10/17/2022 09:43:45 10/17/20 22 10/17/2022 urina lysis , dipst ick Unknown Analyte Normal = Negati ve Not Available [address]99minerva blackman [address], [place], [address], 10/17/2022 09:43:45 10/17/20 22 10/17/2022 urina lysis , dipst ick Unknown Analyte Normal = Negati ve Not Available [address]minerva blackman [address], [place], [address], 10/17/2022 09:43:45 10/17/20 22 10/17/2022 urina lysis , dipst ick Unknown Analyte Normal = 6.5, 7.0, 7.5, 8.0 Not Available [address]minerva blackman [address], [place], [address], 10/17/2022 09:43:45 10/17/20 22 10/17/2022 urina lysis , dipst ick Unknown Analyte 6.5 Not Available [facility] [address], [place], [address], 10/17/2022 09:43:45 10/17/2010/17/2022 urina lysis , dipst ick Unknown Analyte Normal = Negati ve Not Available minerva blackman [address], [place], [address], 10/17/2022 09:43:45 10/17/2010/17/2022 urina lysis , dipst ick Unknown Analyte Negati ve Not Available minerva blackman [address], [place], [address], 10/17/2022 09:43:45 10/17/20 22 10/17/2022 urina lysis , dipst ick Unknown Analyte Normal = 0.2, 1.0 Not Available minerva blackman [address], [place], [address], 10/17/2022 09:43:45 10/17/20 22 10/17/2022 urina lysis , dipst ick Unknown Analyte 0.2 E.U./d L Not Available minerva blackman [address], [place], [address], 10/17/2022 09:43:45 10/17/20 22 10/17/2022 urina lysis , dipst ick Unknown Analyte Normal = Negati ve Not Available [address]minerva blackman [address], [place], [address], 10/17/2022 09:43:45 10/17/20 22 10/17/2022 urina lysis , dipst ick Unknown Analyte Positi ve Not Available [address]minerva blackman [address], [place], [address], 10/17/2022 09:43:45 10/17/20 22 10/17/2022 urina lysis , dipst ick Unknown Analyte Normal = Negati ve Not Available [facility] [address], [place], [address], 10/17/2022 09:43:45 10/17/20 22 10/17/2022 urina lysis , dipst ick Unknown Analyte Trace Not Available [address] [place] [address], [place], [address], 10/17/2022 09:43:45 10/17/20 22 10/17/2022 rapid SARS CoV 2 Ag, QL IA, respi rator y speci men Unknown Analyte Normal =Negat monserrat Not Available [address], [place], [address], 10/17/2022 09:43:39 10/17/20 22 10/17/2022 rapid SARS CoV 2 Ag, QL IA, respi rator y speci men Unknown Analyte negati ve Not Available [address] [place] [address], [place], [address], 10/17/2022 09:43:39 10/17/20 22 10/17/2022 rapid flu (A+B) Unknown Analyte Normal = Negati ve Not Available 2099minerva [address], [place], [address], 10/17/2022 09:43:32 10/17/20 22 10/17/2022 rapid flu (A+B) Unknown Analyte Normal = Negati ve Not Available [address] [place] [address], [address], 10/17/2022 09:43:32 10/17/20 22 10/17/2022 rapid flu (A+B) Unknown Analyte negati ve Not Available [address] [place] [address], [address], 10/17/2022 09:43:32 10/17/20 22 10/17/2022 rapid flu (A+B) Unknown Analyte negati ve Not Available [address] [place] [address], [place], [address], 10/17/2022 09:43:32 10/18/20 22 10/20/2022 URINE CULTU RE, SANDRAI NE urine culture, routine Final report Not Available [facility] ([facility]) [address] [place], [address], 10/20/2022 06:07:13 10/18/20 22 10/20/2022 URINE CULTU REMELODY NE result 1 No growth Not Available [facility] ([facility]) [address] [place], [address], 10/20/2022 06:07:13 01/21/20 23 01/20/2023 rapid strep group A, throa t Unknown Analyte Normal = Negati ve Not Available [address] [place] [address], [place], [address], 01/20/2023 09:39:06 01/21/20 23 01/20/2023 rapid strep group A, throa t Unknown Analyte positi ve Not Available [address] [place] [address], [address], 01/20/2023 09:39:06 Result Notes None recorded. Problems Name Problem SNOMED Code Status Onset Date Resolution Date Notes Provider Name and Address Organization Details Recorded Time Attention deficit hyperactivity disorder 636787145 Active 2021 Nilam uamnzor PA - [facility] 2 09:42:50 Problem Notes None recorded. Procedures Surgical History Date Name Laterality Status Provider Name and Address Organization Details Recorded Time 9 extraction of wisdom tooth completed Nilam Ferro PA - [facility] 10/17/2022 09:43:06 Imaging Results None recorded. Procedure Notes None recorded. Medical Equipment None Reported. Allergies Allergen ID Allergen Name Allergen Category Reaction Reaction Severity Criticality Documentation Date Start Date Code Code System Note Provider Name and Address Organization Details Recorded Time 65657 latex environme nt,medica tion hives Not available low 10/17/2022 34974 91 RxNorm Nilam umanzor PA - [facility] 2 09:41:09 Medications Name Sig Start Date Stop Date Status Note LastModified by Organization Details LastModified Time Adderall 30 mg tablet Take 1 tablet every day by oral route. active Not Available Not Available No t Available fluconazole 150 mg tablet Take 1 tablet every day by oral route as directed for 1 day. 2022 active Not Available Not Available Not Avai lable amoxicillin 875 mg tablet Take 1 tablet every 12 hours by oral route with meals for 10 days. 2022 active Not Available Not Available Not Avai lable Bactrim DS 800 mg-160 mg tablet Take 1 tablet every 12 hours by oral route with meals for 5 days. 01/20 completed Not Available Not Available Not Available Vitals Date Recorded Body height Body mass index (BMI) Body weight Oxygen saturation Pain severity - 0-10 verbal numeric rating [Score] - Reported Heart rate Respiratory rate Body temperature Systolic And Diastolic Provider Name and Address Organization Details Last Updated DateTime 3 165.1 cm 25 kg/m2 23024.8 6 g 100 % 10 124 /min 20 /min 99.3 [degF] 133/83 mm[Hg] Nilam Ferro PA - [facility] 3 09:49:16 Date Recorded Body height Body mass index (BMI) Body weight Oxygen saturation Heart rate Respiratory rate Body temperature Systolic And Diastolic Provider Name and Address Organization Details Last Updated DateTime 2 165.1 cm 25.1 kg/m2 86510.4 5 g 96 % 62 /min 18 /min 98.4 [degF] 131/90 mm[Hg] Nilam Cote [facility] 2 10:01:38 Social History Question Answer Notes LastModified by Organizat ion Details LastModified Time Tobacco Smoking Status Never Smoker Nilam umanzor PA - [facility] 10/17/2022 09:43:17 Have You Had Direct Contact, Or Contact During Intimacy, With Monkeypox Rash, Scabs, Or Body Fluids From A Person With Monkeypox? No Information not available 10/17/2022 Have You Recently Traveled Abroad? No Information not available 10/17/2022 Sex: Unknown Functional Status Question Answer Note LastModified by Organizat ion Details LastModified Time Do you use any illicit or recreational drugs? No Information not available 10/17/2022 Do you or have you ever used any other forms of tobacco or nicotine? No Information not available 10/17/2022 What is your level of alcohol consumption? None Information not available 10/17/2022 Mental Status None recorded. Family History Relationship Description Onset Age of this Age Resolved Age Notes LastModified by Organization Details LastModified Time Father No current problems or disability Not available 10/17 09:42:54 Mother No current problems or disability Not available 10/17 09:42:54 Medical History No medical history recorded. Gynecological HistoryNo gynecological history recorded. Obstetrics History GPAL:G 0 P 0 0 0 0 Immunizations Vaccine Type Date Status Note Provider Nam e and Address Organization Details Recorded Time SARS-COV-2 (COVID-19) vaccine, UNSPECIFIED 06/04/2022 completed CHINTAN James [facility] 10/17/2022 09:42:28 Past Encounters Encounter ID Performer Location Encounter Start Date Encounter Closed Date Diagnosis/Indication Diagnosis SNOMED-CT Code Diagnosis ICD10 Code Diagnosis IMO Codes Diagnosis Note [id number] [facility] [address] [place] [address] 08/25/2022 16:22:34 08/25/2022 18:19:39 [id number] [address] [place] [address] 10/23/2021 08:49:10 10/23/2021 11:38:42 [id number] [address] [place] [address] 11/01/2020 14:03:54 11/01/2020 18:24:31 [id number] [address] [address] [place] [address] 01/16/2022 16:47:26 01/16/2022 18:24:18 [id number] [address] [place] [address] 09/30/2021 08:14:41 09/30/2021 10:09:04 [id number] [address] [address] [place] [address] 06/12/2021 16:59:22 06/12/2021 19:19:16 [id number] [address] [place] [address] 08/16/2019 19:00:40 08/16/2019 19:30:06 [id number] [address] [address] [place] [address] 07/25/2019 17:58:16 07/25/2019 18:19:34 [id number] [address] [place] [address] 08/02/2020 11:56:32 08/02/2020 13:00:33 [id number] _[facility] Orte[address] [facility] [place] [address] 10/05/2021 11:24:35 10/05/2021 12:59:21 [id number] [address] [place] [address] 05/25/2020 13:12:19 05/25/2020 13:58:17 [id number] DANIEL PHAM MD [address] [place] [address] 10/17/2022 08:21:57 10/17/2022 11:05:19 Food-borne gastroenteritis 291184705 A05.9 Try small amounts of clear liquids frequently . Water, asia mindy,clear chicken broth, or sport drinks. If vomiting occurs, wait 30-60 minutes before trying clear liquids again. Once you are able to tolerate clear liquids without vomiting for at least 6-12 hours without vomiting, you may begin to eat small amounts of food, starting with a BRAT diet. The BRAT diet consists of foods such as bananas, rice, applesauce , toast, crackers, and other foods rich in carbohydra beatriz and low on fats and spices, which tend to irritate the stomach. If the BRAT diet is tolerated for 12-24 hours, you can slowly add other foods to your diet. If vomiting occurs, you should go back to clear liquids only and work your way back to a normal diet as outlined above. If you are unable to tolerate clear liquids for4 consecutiv e hours, you should seek treatment immediatel y or go to the Emergency Department . If your symptoms are getting worse, or if you develop new symptoms that concern you, you should call 911 or go to the Emergency Department . Nausea and vomiting 1693 2000 R11.2 Acute urin osbaldo tract infection 548098103 N39.0 Drink plenty of fluids If your symptoms worsen or persist you should be re-evaluat ed. [facility] or see your primary care physician if your symptoms fail to improve in 3-5 days. You should follow up sooner if your symptoms worsen significan tly or if you develop new symptoms that concern you. If your symptoms are getting worse, or if you develop new symptoms that concern you, you should call 911 or go to the Emergency Department . [id number] Jared Rosas NP [address] [place] [address] 01/20/2023 09:06:34 01/20/2023 10:13:17 Streptococcal sore throat 03972543 J02.0 Vaginitis 71455440 N76.0 Health Concerns Section Related Observation LastModified by Organization Detai ls LastModified Time None Recorded Concern Status LastModified by Organization Details LastModified Time None Recorded Advance Directives Directive None Recorded Payers Insurance Date Sequence Insurance Name Policy Number Policy Walters Covered Member ID Walters Member ID Guarantor Name 01/20/2023 1 [place] [id number] Zahira Roland [id number] Zahira Roland Notes Date Note Type Note Provider Name and Address Organization Details Recorded Time 10/17/2022 text/html Nausea / Vomitin g UCReported by PatientHPI:For context, patient reportspossible food source. For associated symptoms, patient reportsdiarrheabut reportsno abdominal pain,no fever,no chills, andno dark tarry stools. For severity, patient reportsmild. For duration, patient reportsstarted 4 days agoandlasted 3 days. For onset/timing, patient reportsacute. 4d ago ate Azerbaijani food and then later had Wolof food. Overnight that night started with N/V and some diarrhea. Minimal vomiting but nausea persisted. No appetite. This am finally feeling better with no nausea and started with dysuria and discolored urine - typical sxs of her UTIs that she has been getting more frequently recently (no relation to sexual activity) DANIEL PHAM MD [address] [place], [address], [place] - [facility] 10/17/2022 11:06:06 01/20/2023 text/html Sore throatRepor walt by PatientSore ThroatFor associated symptoms, patient reportssore throat,hoarseness,cough ing, andsinus pain/ congestionbut reportsno sputum production,no shortness of breath,no wheezing,no vomiting, andno nausea. For context, patient reportssick contactbut reportsno foreign travelandnon-smoker. For modifying factors, patient reportsexposed to strep non household. For source of patient information, patient reportsinformation obtained from patient,patient arrived at urgent care ambulatory, andlearning styles: auditory. For location, patient reportsthroat. For severity, patient reportsmild. For quality, patient reportssharpandburning. For onset/timing, patient reports3 days. Jared Rosas NP [address] [place], [address], PA - [facility] 01/20/2023 10:29:50 OBGyn Episode No OBEpisode recorded.
--- OUTSIDE RECORDS SUMMARY | 2025-09-23 19:48 | XMS_ITS | Encounter Summary ---
Author Organization [facility] Address [address] [place] [address] Phone Care Team Providers Care Buffing Wheel Former Machine Name Role Phone Unavailable Primary Care Provider Unavailabl e Encounter Details Date Type Department Care Team (Late st Contact Info) Description 06/20/2017 Conversion Encounter [facility] - [address] [address] Social History Tobacco Use Types Packs/Day Years Used Date Smoking Tobacco: Never Comments:Never smoker Comments Unknown Sex and Gender Information Value Date Recorded Sex Assigned at Not on file Legal Sex Female 11:46 AM EDT Gender Identity Not on file Sexual Orientation Not on file documented as of this encounter Plan of Treatment Not on file documented as of this encounter Visit Diagnoses Not on filedocumented in this encounter
--- OUTSIDE RECORDS SUMMARY | 2025-09-23 19:48 | XMS_ITS | Encounter Summary ---
Author Organization [facility] Address [address] [place] [address] Phone Care Team Providers Care Rougher Operator Name Role Phone Unavailable Primary Care Provider Unavailabl e Encounter Details Date Type Department Care Team (Late st Contact Info) Description 09/06/2010 Documentation [facility] Family Medicine [address] [place], [place] [phone] Family Medicine, Physician [address] [place] [address] Social History Tobacco Use Types Packs/Day Years [...]
--- OUTSIDE RECORDS SUMMARY | 2025-09-23 19:48 | XMS_ITS | Encounter Summary ---
Author Organization [employer] Address [address] [facility] 7 [place] [address] Care Team Providers Care Performance Solutions Specialist Name Role Phone Kelton Florentino MD Primary Care Prov ider Reason for Visit * Reason Onset Date Comments Med Refill 10/22/2022 Encounter Details Date Type Department Care Team ([facility] st Contact Info) Description 10/22/2022 Telephone [facility] MEDICINE [address] [place] [address] Kelton Florentino MD [address] [place] [address] Med Refill Social History Tobacco Use Types [...] encounter Miscellaneous Notes * Telephone Encounter - Bobby Cordero RN - 10/23/2022 2:50 PM EST Please see message below. Thank you. * Telephone Encounter - Kye Coleman - 10/23/2022 2:39 PM EST Tc from pt requesting script for adderall to be sent to [facility] [address], [place] [address]. Current pharmacy has medication on back order * Telephone Encounter - Kye Jared - 10/22/2022 10:48 AM EST Tc from pt requesting med refill ( Adderall xr 30 mg ) Last seen on 05-28-[address] Lomeli Pt requesting medication to be send over to [address], [place] [address] due to other pharmacy being back order documented in this encounter Plan of Treatment Not on file documented as of this encounter Visit Diagnoses Not on filedocumented in this encounter Care Teams Performance Solutions Specialist Relationship Specialty Start Date End Date Kelton Florentino MD [address] [place] [address] PCP - General Internal Medicine 01/25/20 documented as of this encounter
--- OUTSIDE RECORDS SUMMARY | 2025-09-23 19:48 | XMS_ITS | Encounter Summary ---
Author Organization [facility] Address [address] [place] [address] Phone Care Team Providers Care Cfd Engineer Name Role Phone Unavailable Primary Care Provider Unavailabl e Reason for Visit * Reason Comments Med Refill Encounter Details Date Type Department Care Team ([facility] st Contact Info) Description 07/25/2018 Refill [facility] [address] [place] [address] Rosalind Hankins, DO [address] [place] [address] Menstrual cycle disorder Social History Tobacco Use Types Packs/Day Years Used Date Smoking Tobacco: Never Smokeless Tobacco: Never Comments:Never smoker Alcohol Use Standard Drinks/Week Comments No 0 (1 standard drink = 0.6 oz pur e alcohol) Comments Unknown Sex and Gender Information Value Date Recorded Sex Assigned at Not on file Legal Sex Female 11:46 AM EDT Gender Identity Not on file Sexual Orientation Not on file documented as of this encounter Miscellaneous Notes * Telephone Encounter - Mi Crane MD - 07/25/2018 1:03 PM EDT Script sent. PPP * Telephone Encounter - Nery Chan LPN - 07/25/2018 9:53 AM EDT LEVONO-E ESTRAD 0.15-0.03-0.01 Last well visit 07/21 pe pending for 11/22 documented in this encounter Plan of Treatment Not on file documented as of this encounter Visit Diagnoses Diagnosis Menstrual cycle disorder Unspecified disorder of menstruation and other abnormal bleeding from female genital tract documented in this encounter
--- OUTSIDE RECORDS SUMMARY | 2025-09-23 19:48 | XMS_ITS | Encounter Summary ---
Author Organization [facility] Address [address] [place] [address] Phone Care Team Providers Care Grinder Carbon Plant Name Role Phone Unknown, Unknown Primary Care Provider Neri Mcconnell MD Unavailable [phone] Kelton Florentino MD Primary Care Prov ider Reason for Referral * Physical Therapy (Routine) - Closed Specialty Diagnoses / Procedures Referred By Greer mendez Referred To Contact Physical Therapy Diagnoses Encounter for rehabilitation Neri Cruz MD [address] [employer] [address] [place] [address] Phone: tel: fax: [address] [address] Phone: tel: Referral ID Status Reason Start Date Expiration Date Visits Re quested Visits Authorized [id number] Closed 01/30/2024 11/03/2024 0 0 Encounter Details Date Type Department Care Team (Latest Contact Info) Description 01/30/2024 Transcribe Orders [facility] [address] [place] [address] Neri Cruz MD 100 [employer] (Closed) [address] [place] [address] Encounter for rehabilitation (Primary Dx) Social History Tobacco Use Types Packs/Day Years [...] Not on file Not on f ile documented as of this encounter Plan of Treatment Scheduled Referrals Name Type Priority Associated Diagnoses Orde r Schedule Ambulatory referral to [facility] Physical Therapy Outpatient Referral Routine Encounter for rehabilitation Ordered: 01/30/2024 documented as of this encounter Visit Diagnoses Diagnosis Encounter for rehabilitation- Primary documented in this encounter Care Teams Grinder Carbon Plant Relationship Specialty Start Date End Date Unknown, Unknown, MD PCP - General 03/23/19 07/12/24 Kelton Florentino MD [address] [place] [address] PCP - General Internal Medicine 07/13/24 Neri Cruz MD [address] [address] Urology 06/29/24 documented as of this encounter Additional Source Comments The information contained in this document represents components of the legal health record. It is not the complete legal health record.[facility]
--- OUTSIDE RECORDS SUMMARY | 2025-09-23 19:48 | XMS_ITS | Encounter Summary ---
Author Organization [employer] Address [address] [place] [address] 7 [place] [address] Care Team Providers Care Finance Professor Name Role Phone Kelton Florentino MD Primary Care Prov ider Encounter Details Date Type Department Care Team ([facility] st Contact Info) Description 11/23/2022 Orders Only [facility] MEDICINE [address] [place], [place] [phone] Kelton Florentino MD [address] [place], [place] [phone] Attention deficit hyperactivity disorder (ADHD), combined type [...] type documented in this encounter Care Teams Finance Professor Relationship Specialty Start Date End Date Kelton Florentino MD [address] [place], [place] [phone] PCP - General Internal Medicine 01/25/20 documented as of this encounter
--- OUTSIDE RECORDS SUMMARY | 2025-09-23 19:48 | XMS_ITS | Encounter Summary ---
Author Organization [employer] Address [address] [facility] 7t [place] [address] Care Team Providers Care Office Helper Name Role Phone Kelton Florentino MD Primary Care Prov ider Encounter Details Date Type Department Care Team (Latest Contact Info) Description 09/23/2025 Travel Social History Tobacco Use Types Packs/Day Years Used Date Smoking Tobacco: Never Smokeless Tobacco: Never Alcohol Use Standard Drinks/Week Comments Yes 0 (1 standard drink = 0.6 oz pur e alcohol) oca Housing Stability Answer Date Recorded What is your housing situation today? I have ericktom baker 09/16/[address] you [...] on filedocumented in this encounter Care Teams Office Helper Relationship Specialty Start Date End Date LomeliKelton Sherwood MD [address] [place] [address] PCP - General Internal Medicine 01/25/20 documented as of this encounter
--- OUTSIDE RECORDS SUMMARY | 2025-09-23 19:48 | XMS_ITS | Encounter Summary ---
Author Organization [employer] Address [address] [place] [address] Care Team Providers Care Chili Powder Mixer Name Role Phone Kelton Florentino MD Primary Care Prov ider Reason for Visit * Reason Onset Date Comments Med Refill 12/07/2024 Encounter Details Date Type Department Care Team ([facility] st Contact Info) Description 12/07/2024 Refill [facility] MED & PEDS [address] [place] [address] Kelton Florentino MD [address] [place] [address] Attention deficit hyperactivity disorder (ADHD), combined type Social History Tobacco Use Types Packs/Day Years Used Date Smoking Tobacco: Never Smokeless Tobacco: Never Alcohol Use Standard Drinks/Week Comments Yes 0 (1 standard drink = 0.6 oz pur e alcohol) oca Comments No Sex and Gender Information Value [...] type documented in this encounter Care Teams Chili Powder Mixer Relationship Specialty Start Date End Date Kelton Florentino MD [address] [place] [address] PCP - General Internal Medicine 01/25/20 documented as of this encounter
--- OUTSIDE RECORDS SUMMARY | 2025-09-23 19:48 | XMS_ITS | Encounter Summary ---
Author Organization [employer] Address [address] [facility] 7t [place] [address] Care Team Providers Care Nurse Anesthetist Name Role Phone Kelton Florentino MD Primary Care Prov ider Encounter Details Date Type Department Care Team (Latest Contact Info) Description 09/22/2025 Travel Social History Tobacco Use Types Packs/Day [...] on filedocumented in this encounter Care Teams Nurse Anesthetist Relationship Specialty Start Date End Date LomeliKelton Sherwood MD [address] [place] [address] PCP - General Internal Medicine 01/25/20 documented as of this encounter
--- OUTSIDE RECORDS SUMMARY | 2025-09-23 19:49 | XMS_ITS | Encounter Summary ---
Author Organization [facility] Address [address] [place] [address] Phone Care Team Providers Care Timber Repairer Name Role Phone Unavailable Primary Care Provider Unavailabl e Encounter Details Date Type Department Care Team (Late st Contact Info) Description 01/07/2017 Documentation [facility] Family Medicine [address] [place] [address] Family Medicine, Physician [facility] [place] [address] Social History Tobacco Use Types Packs/Day Years [...]
--- OUTSIDE RECORDS SUMMARY | 2025-09-23 19:49 | XMS_ITS | Encounter Summary ---
Author Organization [facility] Address [address] [place] [address] Phone Care Team Providers Care Sueding Machine Operator Name Role Phone Unavailable Primary Care Provider Unavailabl e Encounter Details Date Type Department Care Team (Late st Contact Info) Description 07/19/2010 Documentation [facility] Family Medicine [address] [place], [place] [phone] Family Medicine, Physician [address] [place] [address] Social History Tobacco Use Types Packs/Day Years [...]
--- OUTSIDE RECORDS SUMMARY | 2025-09-23 19:49 | XMS_ITS | Encounter Summary ---
Author Organization [employer] Address [address] [place] [address] 7 [place] [address] Care Team Providers Care Contract Engineer Name Role Phone Kelton Florentino MD Primary Care Prov ider Reason for Visit * Reason Onset Date Comments Medication Question 11/23/2022 Encounter Details Date Type Department Care Team ([facility] Contact Info) Description 11/23/2022 Telephone [facility] MED & PEDS [address] [place], [place] [phone] Kelton Florentino MD [address] [place] [address] Medication Question Social History Tobacco Use Types Packs/Day Years [...] encounter Miscellaneous Notes * Telephone Encounter - Lorrie Escobedo RN - 11/23/2022 4:16 PM EST PCP sent the brand name Adderall to the [facility] on [address] TC to pt, pt notified. * Telephone Encounter - Bobby Cordero RN - 11/23/2022 2:30 PM EST Received from pt portal: i???m unsure now if the [facility] has any left, they told me my doctors office has to call because they are getting too many calls from patients looking for adderallbecause of the shortage. If they are out i???ll be willing to switch to ritalin, I took it when I was younger for a year and it made me feel really sad but I need something for me to be able to function and work on saturday. please help because i???m doing everything I can to get this settled before the weekend. Please review. Please see message below from Lorrie and charles. Thank you. * Telephone Encounter - Lorrie Escobedo RN - 11/23/2022 2:22 PM EST TC to [facility] on [facility], per pharmacist they do not have any Adderall in stock. TC to [facility] on [facility] per pharmacist they do have Adderall Brand name only, no substitutions. Send a message to PCP to re send med to [facility] on [facility]. Waiting for response. * Telephone Encounter - Bobby Cordero RN - 11/23/2022 1:38 PM EST Please see message below. Also forwarded to PCP to review request. * Telephone Encounter - Bre Cardoza - 11/23/2022 12:30 PM EST Tc from pt requesting to speak with someone regarding update on her medication adderall. documented in this encounter Plan of Treatment Not on file documented as of this encounter Visit Diagnoses Not on filedocumented in this encounter Care Teams Contract Engineer Relationship Specialty Start Date End Date Kelton Florentino MD [address] [place] [phone] PCP - General Internal Medicine 01/25/20 documented as of this encounter
--- OUTSIDE RECORDS SUMMARY | 2025-09-23 19:49 | XMS_ITS | Encounter Summary ---
Author Organization [employer] Address [address] [facility] 7 [place] [address] Care Team Providers Care Supervisor Alum Plant Name Role Phone Kelton Florentino MD Primary Care Prov ider Encounter Details Date Type Department Care Team ([facility] st Contact Info) Description 08/27/2024 Orders Only [facility] MEDICINE [address] [place] [address] Provider, MD Kurt Social History Tobacco Use Types Packs/Day Years [...] on file documented as of this encounter Procedures Procedure Name Priority Date/Time Associated Diagnosis Comments HM PAP/HPV Routine 07/20/2024 2:22 PM EDT documented in this encounter Results * HM PAP/HPV (07/20/2024 2:22 PM EDT) Historical Provider HEALTH MAINTENANCE Final Result documented in this encounter Visit Diagnoses Not on filedocumented in this encounter Care Teams Supervisor Alum Plant Relationship Specialty Start Date End Date Kelton Florentino MD [address] [place] [address] PCP - General Internal Medicine 01/25/20 documented as of this encounter
--- OUTSIDE RECORDS SUMMARY | 2025-09-23 19:49 | XMS_ITS | Clinical Summary ---
Author Organization [employer] Address [address] [place] [address] [address] [place] [address] Care Team Providers Care Chair Upholsterer Name Role Phone Kelton Florentino MD Primary Care Prov ider Allergies Active Allergy Reactions Criticality Noted Date Comments Banana 11/14/2021 Kiwi Extract 03/25/2019 Latex 09/10/2022 Medications EPINEPHrine (Epipen) 0.3 MG/0.3ML injection syringeIndicatio ns:Allergy, subsequent encounter Inject 0.3 mL (0.3 mg) as directed 1 (one) time for 1 dose. use as directed for allergic reaction and then call 911 0.3 mL 01/22/20 23 Active albuterol 108 (90 Base) MCG/ACT inhaler PROAIR HFA; inhale 2-6 puff by inhalation route every 4 - 6 hours as needed; 90 MCG; 02/26/2017; Active 02/27/20 17 Active magnesium 30 MG tablet Take 30 mg by mouth 2 times daily. OTC magnesium threonate supplement Active ASHWAGANDHA PO Take by mouth. Active amphetamine-dext roamphetamine (Adderall) 30 MG tabletIndication s:Attention deficit hyperactivity disorder (ADHD), combined type TAKE 1 TABLET BY MOUTH EVERY MORNING 30 tablet 02/16/20 25 Active amphetamine-dext roamphetamine (Adderall) 30 MG tabletIndication s:Attention deficit hyperactivity disorder (ADHD), combined type TAKE 1 TABLET BY MOUTH EVERY MORNING 30 tablet 08/27/20 25 Active oxymetazoline (Afrin Nasal [place]) 0.05 % nasal sprayIndications :Nasal congestion Administer 2 sprays into each nostril every 12 (twelve) hours if needed for congestion for up to 2 days. Do not use for more than 3 days. 30 mL 08/10/20 24 2024 Discontinued ondansetron (Zofran) 4 MG tabletIndication s:Nausea Take 1 tablet (4 mg) by mouth every 8 (eight) hours if needed for nausea or vomiting for up to 10 doses. 10 tablet 08/10/20 24 2024 Discontinued amphetamine-dext roamphetamine (Adderall) 30 MG tabletIndication s:Attention deficit hyperactivity disorder (ADHD), combined type TAKE 1 TABLET BY MOUTH EVERY MORNING 30 tablet 07/30/20 25 2024 Discontinued(R eorder (will not trigger notification to Pharmacy)) Active Problems Problem Noted Date Diagnosed Date Mild intermittent asthma without complication Other fatigue 09/23/2025 Assessment & Plan (09/23/2025 1:54 PM EST): Will order routine blood work to rule out secondary causes, follow up as needed Cervical pain 10/22/2023 Assessment & Plan (10/22/2023 3:37 PM EST): Patient complains since July she has been having muscle related pain, she has tried exercising, resting/ice/heat without improvement, will refer to PT UTI symptoms 03/18/2023 Assessment & Plan (03/18/2023 4:02 PM EDT): Rx cipro as she had Bactrim recently. encouraged increased water intake, cranberry juice. Rx fluconazole for pst ab vaginitis prn. New referral to urology, she prefers [facility] Acute cystitis without hematuria 03/18/2023 Attention deficit hyperactiv ity disorder (ADHD), combined type 01/21/2023 Assessment & Plan (09/23/2025 1:54 PM EST): On adderrall, no changes will be made, no side effects reported Assessment & Plan (01/21/2023 9:30 AM EDT): On adderall 30mg, no changes will be made Allergies 01/21/2023 Assessment & Plan (01/21/2023 9:32 AM EDT): She refers has been getting hives to different food, for example onions, this is a new finding, previously she was having allergies to kiwi/banana, will order a Epipen and will refer to a contact lens flashing puncher Frequent UTI 01/21/2023 Assessment & Plan (01/21/2023 9:30 AM EDT): Patient was referred for urology evaluation, will follow up reccomendations Encounters Date Type Department Care Team Description 09/23/2025 1:45 PM EST Office Visit [facility] [address] [place] [address] Kelton Florentino MD Attention deficit hyperactivity disorder (ADHD), combined type (Primary Dx); Other fatigue; Mild intermittent asthma without complication; Dietary counseling; Exercise counseling; Encounter for immunization 09/23/2025 Travel 09/22/2025 Travel 09/16/2025 Patient Outreach [facility] [address] [place] [address] Kelton Florentino MD Pre-visit Planning (SDOH negative, Tobacco screening negative. ) 08/26/2025 Refill [facility] [address] [place] [address] Kelton Florentino MD Attention deficit hyperactivity disorder (ADHD), combined type 07/29/2025 Refill [facility] [address] [place] [address] Kelton Florentino MD Attention deficit hyperactivity disorder (ADHD), combined type 06/24/2025 Refill [facility] [address] [place] [address] Osman Hartley MD Attention deficit hyperactivity disorder (ADHD), combined type from Last 3 Months Immunizations Immunization Administration Dates Next Due Tdap 09/23/2025 Social History Tobacco Use Types Packs/Day Years [...] Orientation Bisexual 09/03/2022 10 :36 AM EDT Last Filed Vital Signs Vital Sign Reading Time Taken Comments Blood Pressure 128/77 09/23/2025 1:25 PM EST Pulse 82 09/23/2025 1:25 PM EST Temperature 36.8 C (98.3 F) 09/23/2025 1:25 PM EST Respiratory Rate 16 09/23/2025 1:25 PM EST Oxygen Saturation 98% 08/10/2024 4:39 PM EDT Inhaled Oxygen Concentration - - Weight 77.1 kg (170 lb) 09/23/2025 1:25 PM EST Height 165.1 cm (5' 5 ) 09/23/2025 1:25 PM EST Body Mass Index 28.29 09/23/2025 1:25 PM EST Plan of Treatment Health Maintenance Due Date Last Done Comments Depression Screening 1998 HIV Screening 1998 Alcohol/Substance Use Screening 2010 Family Planning (PISQ) 2013 Hepatitis C Screening 2016 Pneumococcal Vaccine: Pediatrics (0 to 5 Years) and At-Risk Patients (6 to 49) Years (1 of 2 - PCV) 2017 COVID-19 Vaccine (4 - season) 2025 06/04/2022, 06/19/2021, 02/03/2021 Influenza Vaccine (#1) 2025 , 08/31/2016, 09/19/2015, Additional history exists SDOH Screening 09/16/2026 09/16/2025 Tobacco Screening 09/16/2026 09/16/2025 Disability Screening 09/22/2026 09/22/2025 Pap Smear 07/20/2027 07/20/2024, 09/10/2022 DTaP/Tdap/Td Vaccines (8 - Td or Tdap) 09/23/2035 09/23/2025, 09/28/2009, 03/08/2003, Additional history exists Zoster Vaccines (1 of 2) 2048 RSV Patients and Patients Aged 60 years or older (1 - 1-dose 75+ series) 2073 HIB Vaccines Completed 01/11/2000, 05/1999, 01/20/1999, Additional history exists IPV Vaccines Completed 03/08/2003, 05/1999, 01/20/1999, Additional history exists HPV Vaccines Completed 09/06/2010, 01/04, 11/07/2009 Hepatitis A Vaccines Completed 12/16/2015, 10/18/20 14 Meningococcal Vaccine Completed 12/16/2015, 010 Hepatitis B Vaccines Completed 03/26/2016, 01/20/1999, 1998, Additional history exists Meningococcal B Vaccine Aged Out No l onger eligible based on patient's age to complete this topic RSV under 20 months Aged Out No longe r eligible based on patient's age to complete this topic Rotavirus Vaccines Aged Out No longer eligible based on patient's age to complete this topic Procedures Procedure Name Priority Date/Time Associated Diagnosis Comments VITAMIN B12/FOLATE, SERUM PANEL Routine 09/23/2025 2:27 PM EST Other fatigue IRON AND TOTAL IRON BINDING CAPACITY Routine 09/23/2025 2:27 PM EST Other fatigue HEMOGLOBIN A1C Routine 09/23/2025 2:27 PM EST Other fatigue TSH W/REFLEX TO FT4 Routine 09/23/2025 2 :27 PM EST Attention deficit hyperactivity disorder (ADHD), combined type LIPID PANEL, STANDARD Routine 09/23/2025 2:27 PM EST Attention deficit hyperactivity disorder (ADHD), combined type COMPREHENSIVE METABOLIC PANEL Routine 09/23/2025 2:27 PM EST Attention deficit hyperactivity disorder (ADHD), combined type CBC WITH AUTO DIFFERENTIAL Routine 09/23/2025 2:27 PM EST Attention deficit hyperactivity disorder (ADHD), combined type HM PAP/HPV Routine 07/20/2024 2:22 PM EDT from Last 3 Months or Most Recently Relevant to Health Maintenance Results * Vitamin B12 (Cobalamin) and Folate Panel, Serum (09/23/2025 2:27 PM EST) Vitamin B12 765 200 - 900 pg/mL [facility] Comment:NORMAL 200-900 PG/ML INDETERMINATE 160-199 PG/ML DEFICIENT < 160 PG/ML Folate 11.9 > or = 4.0 ng/mL [facility] Comment:Reference Values:> o r = 4.0 ng/mL< 4.0 ng/mL suggests folate deficiency Methotrexate, aminopterin and folinic acid(leucovorin) are chemotherapeutic agents whose molecularstructures are similar to folate; therefore, the Architectfolate assay cannot be used for patients using these drugs. Blood Venous blood specimen / Unknown 09/23/2025 2:27 PM EST 09/23/2025 6:01 PM EST us Kelton Kiran MD LAB BLOOD ORDERABL ES Final Result [facility] [address] [place] [phone] * TSH W/Reflex to FT4 (09/23/2025 2:27 PM EST) TSH reflex Free T4 1.48 0.32 - 4.0 uIU/mL [facility] Blood Venous blood specimen / Unknown 09/23/2025 2:27 PM EST 09/23/2025 6:01 PM EST us Kelton Kiran MD LAB BLOOD ORDERABL ES Final Result [facility] [address] [place] [address] [phone] * CBC auto differential (09/23/2025 2:27 PM EST) Pathologist [facility] White Blood Count 7.6 4.8 - 10.8 X10*3/uL [facility] Red Blood Count 4.47 4.20 - 5.50 X10*6/uL [facility] Hemoglobin 13.6 12.0 - 16.0 g/dl [facility] Hematocrit 41.6 37.0 - 47.0 % [facility] Mean Corpuscular Volume 93.1 80.0 - 98.0 fL [facility] Mean Corpuscular Hemoglobin 30.4 27.0 - 33.0 pg [facility] Mean Corpuscular HGB Conc 32.7 31.0 - 35.0 g/dl [facility] Red Cell Distribution Width 12.4 11.0 - 16.0 % [facility] Platelet Count 370 160 - 400 X10*3/uL [facility] Mean Platelet Volume 9.8 9.4 - 12.3 fL [facility] Neutrophils Percent Auto 62.7 45 - 73 % [facility] Imm Gran Pct Auto 0.3 0.0 - 0.4 % [facility] Lymphocytes Percent Auto 28.0 20 - 40 % [facility] Monocytes Percent Auto 7.2 2 - 11 % [facility] Eosinophils Percent Auto 0.9 0 - 4 % [facility] Basophils Percent Auto 0.9 0 - 2 % [facility] NRBC Pct Auto 0.0 0.0 - 0.2 /100WBC [facility] Neutrophils Absolute Auto 4.8 2.0 - 8.3 x10*3/uL [facility] Imm Gran Abs Auto 0.02 0.00 - 0.03 X10*3/uL [facility] Lymphocytes Absolute Auto 2.1 1.2 - 4.9 X10*3/uL [facility] Monocytes Absolute Auto 0.6 0.1 - 1.2 X10*3/uL [facility] Eosinophils Absolute Auto 0.1 0.0 - 0.4 X10*3/uL [facility] Basophils Absolute Auto 0.1 0.0 - 0.2 X10*3/uL [facility] NRBC Abs Auto 0.000 0.0 - 0.012 X10*3/uL [facility] Blood Venous blood specimen / Unknown 09/23/2025 2:27 PM EST 09/23/2025 6:01 PM EST Kelton Kiran MD LAB BLOOD ORDERABL ES Final Result Performing Organization Address [facility] Co de Phone Number [facility] [address] [place] [phone] * Iron And Total Iron Binding Capacity (09/23/2025 2:27 PM EST) Iron 95 30 - 160 mcg/dL [facility] Total Iron Binding Capacity 302 228 - 428 mcg/dL [facility] Percent Iron Saturation 31 15 - 50 % [facility] Unsaturated Iron Binding 207 ug/dL [facility] Blood Venous blood specimen / Unknown 09/23/2025 2:27 PM EST 09/23/2025 6:01 PM EST Kelton Kiran MD LAB BLOOD ORDERABL ES Final Result [facility] [address] [place] [phone] * Hemoglobin A1c (09/23/2025 2:27 PM EST) Hemoglobin A1c 5.1 <6.0 % [facility] Comment:Hemoglobin A1C Refer ence Range Adults: 4.8 - 6.0 % Non diabetic: < 6.0 % Goal: < 7.0 %Additional Action Suggested: > 8.0 %Note: Hemoglobin A1c results are invalid for patients with abnormal amounts of HbF. Blood transfusions may impact the HbA1c concentration in the patient sample. Estimated Average Glucose 100 mg/dL [facility] Comment:eAG = Estimated ave rage glucose which is %A1C expressed asaverage glucose, using the formula of the [id number] Glucose study (ADAG), Diabetes Care, Vol.31,#8,Jun. 2007 Blood Venous blood specimen / Unknown 09/23/2025 2:27 PM EST 09/23/2025 6:01 PM EST us Kelton Kiran MD LAB BLOOD ORDERABL ES Final Result [facility] [address] [place] [phone] * Lipid Panel, Standard (09/23/2025 2:27 PM EST) Triglycerides 79 <150 mg/dL [facility] Comment:Slight Lipemia.Carol able Triglyceride: less than 150 mg/dLBorderline High Triglyceride 150-199 mg/dLHigh Triglyceride: 200-499 mg/dLVery High Triglyceride: greater than or equal to 5OO mg/dL Cholesterol 179 <200 mg/dL [facility] Comment:Desirable Cholestero l: less than 200 mg/dLBorderline High Cholesterol: 200-239 mg/dLHigh Cholesterol: greater than 239 mg/dL LDL Cholesterol Calculated 95 <100 mg/dL [facility] Comment:Desirable LDL: less than 100 mg/dLNear Optimal/Above Optimal LDL: 110- 129 mg/dLBorderline High LDL: 130-159 mg/dLHigh LDL: 160-189 mg/dLVery High LDL: greater than or equal to 190 mg/dL HDL Cholesterol 69 >40 mg/dL [facility] Comment:Desirable HDL: great er than 40 mg/dL Note: This HDL assay may give artificially low results in patients with liver disease. Blood Venous blood specimen / Unknown 09/23/2025 2:27 PM EST 09/23/2025 6:01 PM EST us Kelton Kiran MD LAB BLOOD ORDERABL ES Final Result [facility] [address] [place] [phone] * (ABNORMAL) Comprehensive Metabolic Panel (09/23/2025 2:27 PM EST) Sodium 140 135 - 145 mmol/L [facility] Potassium 3.8 3.3 - 5.1 mmol/L [facility] Chloride 104 96 - 108 mmol/L [facility] Carbon Dioxide 28 22 - 29 mmol/L [facility] Anion Gap 12 12 - 20 [facility] Urea Nitrogen (BUN) 11 9 - 16 mg/dL [facility] Creatinine, Serum 0.62 0.5 - 1.4 mg/dL [facility] Estimated Glomerular Filt Rate >60 [facility] Comment:Chronic Kidney Disea se: Estimated GFR < 60 mL/min/[id number] Kidney Disease: Estimated GFR < 15 mL/min/1.73m2 Glucose 93 60 - 115 mg/dL [facility] Calcium 9.6 8.4 - 10.2 mg/dL [facility] Bilirubin, Total 0.3 0.0 - 1.0 mg/dL [facility] Aspartate Amino Transferase 32(H) 5 - 31 U/L [facility] Alanine Aminotransferase 26 0 - 31 U/L [facility] Total Protein 8.2(H) 6.5 - 8.0 g/dL [facility] Albumin Level 5.0 3.5 - 5.0 g/dL [facility] Alkaline Phosphatase 62 39 - 117 U/L [facility] Blood Venous blood specimen / Unknown 09/23/2025 2:27 PM EST 09/23/2025 6:01 PM EST us Kelton Kiran MD LAB BLOOD ORDERABL ES Final Result [facility] [address] [place] [phone] * HM PAP/HPV (07/20/2024 2:22 PM EDT) us Historical Provider HEALTH MAINTENANCE Final Result from Last 3 Months or Most Recently Relevant to Health Maintenance Insurance , [address] [place] [address] Care Teams Chair Upholsterer Relationship Specialty Start Date End Date LomeliKelton Sherwood MD [address] [place] [id number] PCP - General Internal Medicine 01/25/20
[2025-09-24 08:16] LABS: HIV Num 1 0.06 S/CO (0.00-0.99); ~HepC Num1 0.15 S/CO (0.00-0.79); ~Hepatitis C Antibody Nonreactive (Nonreactive)
== END 2025-09-23 14:27 | disposition home or self-care (01) ==
LOC: HO.CHCLDS 14:26
PROVIDERS: Visit Provider Internal Medicine
DX: Z11.4 Encounter for screening for human immunodeficiency virus [HIV] (principal); Z11.59 Encounter for screening for other viral diseases; Z13.1 Encounter for screening for diabetes mellitus; Z13.6 Encounter for screening for cardiovascular disorders; F90.2 Attention-deficit hyperactivity disorder, combined type; R53.83 Other fatigue
CPT/HCPCS: 36415; 80053; 80061; 82607; 82746; 83036; 83540; 84443; 85025; 86803; 87389